=== PATIENT | male | born 1955 | race Hispanic/Latino ===

== ENCOUNTER 2016-09-16 12:05 | Inpatient (IN) | payer MEDICARE ==
[2016-09-16] MEDS ORDERED: NACL 0.9% 1000 ML 1,000 ML IV ONE ×3 (12:35→14:22)
--- NOTE | 2016-09-16 13:10 | Admit Criteria Form ---
Admission Criteria Documentation: SEVERE SEPSIS Clinical Indications for Admission to Inpatient Care (Place 'X' for any and all applicable criteria): Hospital admission is needed for appropriate care of the patient because of ANY ONE of the following: [X]I. Hemodynamic instability indicated by ANY ONE of the following(1)(2)(3)( 4)(5): [X]a. Vital sign abnormality not readily corrected by appropriate treatment within 12 to 24 hours indicated by ANY ONE of the following: []i) Tachycardia that persists despite appropriate treatment [X]ii) Hypotension that persists despite appropriate treatment []iii) Orthostatic vital sign changes that persist despite appropriate treatment [X]b. Vital sign abnormality that is severe indicated by ANY ONE of the following: [Xi. Inadequate perfusion indicated by ANY ONE of the following: [X]1) Lactic acidosis (greater than 2 mmol/L) []2) New abnormal capillary refill (greater than 3 seconds) []3) Reduced urine output [X]4) New altered mental status []5) Myocardial Ischemia [X]ii. Mean arterial pressure [A] less than 60 mm Hg []iii. Mean arterial pressure[A] less than 70 mm Hg after 30 minutes of appropriate treatment (eg, fluid resuscitation) []iv. Sustained heart rate greater than 120 beats per minute in adult []v. IV inotropic or vasopressor medication required to maintain adequate blood pressure or perfusion [X]II. Systemic or infectious condition causing severe symptoms or findings not responsive to emergency or observation care treatment (as appropriate) indicated by ANY ONE of the following: []a. Cardiac arrhythmias of immediate concern(1)(2)(3) []b. Severe endocrine disorder (eg, thyrotoxicosis, adrenal insufficiency)(4)(5) []c. Seizures (eg, new or recurrent)(6) [X]d. New-onset end organ failure or dysfunction as indicated by ANY ONE of the following: []i. Acute unexplained hypoxemia (eg, not from lung infection or chronic disease)(7)(8)(9) []ii. Acute renal failure as indicated by new onset of ANY ONE of the following(10)(11)(12)(13)(14): []1) 3-fold rise in serum creatinine from baseline []2) Serum creatinine greater than 4 mg/dL (354 micromoles/L) with acute rise greater than 0.5 mg/dL (44.2 micromoles/L) []3) Reduction of more than 75% in estimated glomerular filtration rate from baseline. []4) Estimated glomerular filtration rate less than 35 mL/min/1.73m2 ( 0.59 mL/sec/1.73m2) in child younger than 18 years. []5) Cessation of urine output indicated by ALL of the following: []A. Adequate volume status []B. Inadequate urine output as indicated by ANY ONE of the following: []a. Urine output less than 0.3 mL/kg/hr for 24 hours []b. Anuria (urine output less than 0.1 mL/kg/hr) for 12 hours [X]iii. Acute mental status changes(15) []iv. Acute hepatic failure (eg, plasma bilirubin greater than 4 mg/ dL (68 micromoles/L), new INR greater than 2.0)(16)(17) []e. Unmanageable nausea and vomiting(18) []f. New-onset or uncontrolled central diabetes insipidus(19)(20) []g. Clinically significant dehydration(18)(21) []h. Hypoglycemia(22) []i. Acidosis (pH less than 7.35) or alkalosis (pH greater than 7.45)( 22)(23) []j. Toxic drug level that indicates need for specific monitoring or treatment(24)(25) []k. Severe electrolyte abnormalities indicated by ALL of the following( 1)(2)(3): []i. Electrolytes and associated findings are not as expected for patient baseline or acceptable treatment effects. []ii. Severe abnormalities indicated by ANY ONE of the following: []1) Sodium less than 130 mEq/L (mmol/L) (new) []2) Sodium less than 135 mEq/L (mmol/L) with ANY ONE of the following: []A. Uncorrectable (to near normal or chronic baseline) after trial of outpatient and emergency treatment []B. Altered mental status []C. Seizures []D. Severe medical etiology requiring inpatient management (eg , heart failure, hypovolemia) []3) Sodium greater than 155 mEq/L (mmol/L) []4) Sodium greater than 150 mEq/L (mmol/L) with ANY ONE of the following: []A. Uncorrectable (to near normal or chronic baseline) with outpatient and emergency treatment []B. Altered mental status []C. Seizures []D. Severe medical etiology (eg, hypovolemia, diabetes insipidus) []5) Potassium less than 2.5 mEq/L (mmol/L) despite outpatient and emergency treatment []6) Potassium less than 3 mEq/L (mmol/L) with ANY ONE of the following : []A. Weakness []B. Cardiac abnormality (eg, arrhythmia, conduction disturbance ) []C. Cardiac ischemia []D. Ileus []E. Ongoing medical cause requiring inpatient management (eg, acute renal wasting or SIADH) []F. Other severe symptoms []7) Potassium greater than 6.5 mEq/L (mmol/L) []8) Potassium greater than 5 mEq/L (mmol/L) with ANY ONE of the following: []A. Uncorrectable (to near normal or chronic baseline) with outpatient and emergency treatment []B. Severe ECG findings[A] []C. Acute worsening of renal failure (creatinine greater than 2.5 mg/dL (221 micromoles/L) or significant elevation for age and size) []D. Severe weakness []E. Severe medical etiology (eg, hemolysis, infection, drug overdose) []9) Calcium less than 7 mg/dL (1.75 mmol/L) despite outpatient and emergency treatment(5) [X]10) Calcium less than 8 mg/dL (2 mmol/L) with significant symptoms or findings (eg, altered mental status, muscle spasms, seizures, breathing difficulty, cardiac abnormality (eg, arrhythmia or conduction disturbance))(5) []11) Calcium greater than 14 mg/dL (3.5 mmol/L)(5) []12) Calcium greater than 12 mg/dL (3 mmol/L) with ANY ONE of the following(5): []A. Uncorrectable (to near normal or chronic baseline) with outpatient and emergency treatment []B. Significant dehydration or hypovolemia as indicated by ALL of the following(3)(6)(7): []a. Not resolved with initial treatments []b. Clinically significant dehydration as indicated by ANY ONE of the following: [](1) Vomiting refractory to outpatient treatment (ie, precluding oral rehydration) [](2) Inability to drink [](3) Hypernatremia or other electrolyte abnormality unable to be corrected with outpatient and emergency treatment [](4) Failure to remain hydrated with outpatient therapy [](5) Reduced urine output [](6) Hypotension [](7) Serious cause for dehydration requiring acute hospitalization ( eg, bowel obstruction, increased intracranial pressure, infectious cause) [](8) Child with ANY ONE of the following(8): [](i) Severe abdominal tenderness [](ii) Adequate care not available at home [](iii) Severe dehydration (greater than 9% loss of body weight) []C. Significant symptoms or findings (eg, altered mental status , cardiac abnormality (eg, arrhythmia, conduction disturbance), malignant etiology requiring inpatient treatment) []13) Phosphorus less than 1 mg/dL (0.32 mmol/L) []14) Phosphorus less than 1.5 mg/dL (0.48 mmol/L) with ANY ONE of the following: []A. Patient unresponsive to outpatient and emergency treatment []B. Significant symptoms or findings (eg, weakness, altered mental status, breathing difficulty, seizures, rhabdomyolysis) []15) Phosphorus greater than 10 mg/dL (3.2 mmol/L) []16) Phosphorus greater than 4.5 mg/dL (1.45 mmol/L) (new) with ANY ONE of the following: []A. Severe medical etiology (eg, crush injury, acute renal failure) []B. Associated hypocalcemia with significant findings (eg, neurologic symptoms, altered mental status, muscle spasms, seizures, breathing difficulty, cardiac abnormality (eg, arrhythmia, conduction disturbance)) []16) Magnesium less than 1 mg/dL (0.41 mmol/L) []17) Magnesium less than 1.5 mg/dL (0.62 mmol/L) with ANY ONE of the following: []A. Patient unresponsive to outpatient and emergency treatment []B. Associated hypocalcemia with significant findings (eg, altered mental status, muscle spasms, seizures, breathing difficulty, cardiac abnormality (eg, arrhythmia, conduction disturbance)) []C. Associated hypokalemia (potassium less than 3 mEq/L (mmol/L )) with risk of arrhythmia []18) Magnesium greater than 4 mEq/L (2 mmol/L) []19) Magnesium greater than 2.5 mEq/L (1.25 mmol/L) with significant symptoms or findings (eg, weakness, altered mental status, cardiac abnormality (eg, arrhythmia, conduction disturbance), breathing difficulty, severe medical etiology (eg, renal failure, hypovolemia)) []20) Uric acid greater than 20 mg/dL (1190 micromoles/L)(9) []21) Uric acid greater than 8 mg/dL (476 micromoles/L) with significant symptoms or findings of tumor lysis syndrome (eg, creatinine greater than 1.5 times upper limit of normal, cardiac abnormality (eg , arrhythmia, conduction disturbance), seizure)(9) [X]III. High fever or other high-risk infection situation as indicated by ANY ONE of the following(26)(27)(28): [X]a. Outpatient and observation care antimicrobial treatment unavailable, not effective, or not appropriate []b. Documented bacteremia []c. Temperature greater than 104.9 degrees F (40.5 degrees C) (oral) []d. Temperature greater than 103.1 degrees F (39.5 degrees C) (oral) or less than 96.8 degrees F (36 degrees C) (rectal) that does not respond to emergency treatment and observation care []IV. High-risk febrile neutropenia[A] as indicated by ANY ONE of the following(29)(30)(31)(32): []a. Profound neutropenia[B] anticipated to extend for more than 7 days []b. Hemodynamic instability []c. Hypoxemia []d. Tachypnea []e. Altered mental status []f. New-onset abdominal pain []g. New-onset vomiting or diarrhea []h. Oral or gastrointestinal mucositis that interferes with swallowing or causes severe diarrhea []i. Focal infection (eg, cellulitis, pneumonia, central line or catheter infection, perirectal abscess) []j. Renal insufficiency (eg, GFR of less than 30 mL/min/1.73m2 (0.5 mL/sec /1.73m2)). []k. Severe liver dysfunction (transaminase levels greater than 5 times normal) []l. Platelet count less than 50,000/mm3 (50 x109/L)(33) []m. Leukemia or lymphoma induction therapy []n. Leukemia not in complete remission or with evidence of disease progression []o. Bone marrow transplant patient []p. Alemtuzumab being used for therapy []q. [employer] Supportive Care in Cancer (MASCC) Risk Index score of less than 21[C](33)(35). []V. Isolation required (eg, tuberculosis that requires isolation, Ebola infection)[D](36)(37)(38)(39)(40) []. Gangrene that requires treatment beyond emergency or observation level care(41)(42) []VII. Antitoxin administration and ongoing observation required (eg, tetanus, botulism)(43)(44) []. Suspected infection with rapid progression or severe symptoms as indicated by ANY ONE of the following(45): []a. Streptococcal or staphylococcal toxic shock(46) []b. Diphtheria(47) []c. Hantavirus(48) []d. Severe acute respiratory syndrome(8)(49) []e. Anthrax(50) []f. Ebola[D](36)(37)(38) []g. Necrotizing soft tissue infection(41)(42) []h. Plague(50) []i. Other suspected infection that requires care beyond emergency or observation level care []VII. Severe adverse drug or systemic toxin reaction as indicated by ANY ONE of the following(24): []a. Serotonin syndrome(51)(52) []b. Neuroleptic malignant syndrome(51)(52) []c. Cholinergic syndrome with severe symptoms (eg, bronchorrhea, weakness , mental status changes, seizures)(53) []d. Anticholinergic syndrome []e. Sympathetic syndrome with severe symptoms (eg, seizures, mental status changes, cardiac dysrhythmias) []f. Other severe adverse drug or systemic toxin reaction that remains after emergency or observation level care (as appropriate) []VIII. Allergic reaction with severe symptoms (not responsive to emergency or observation care treatment as appropriate), including ANY ONE of the following(54): []a. Airway edema (pharyngeal, epiglottic, or laryngeal edema) []b. Stridor []c. Respiratory failure []d. Bronchospasm []e. Hypotension []IX. Environmental emergency (not responsive to emergency or observation care treatment as appropriate) as indicated by ANY ONE of the following(55)(56): []a. Hyperthermia []b. Heat stroke []c. Heat exhaustion []d. Hypothermia (temperature less than 95 degrees F (35 degrees C) rectal) (57) []e. Electrocution(58) []X. Complications of transplanted organ (ie, not covered elsewhere)[E] indicated by ANY ONE of the following(59): []a. Acute graft rejection (or graft vs. host disease)[F] requiring inpatient management (eg, intravenous immunosuppression)(60)(61)(62)( 63) []b. Acute failure of transplanted organ necessitating inpatient care (eg, cannot be managed in other setting) []c. Infection requiring inpatient management (eg, Hemodynamic instability, need for intravenous antimicrobial treatment)(64)(65) []d. Other complication of transplanted organ requiring inpatient management []XI. Systemic or Infectious Condition condition, symptom, or finding for which emergency and observation care have failed or are not considered appropriate. See General Criteria: Observation Care, General Admission Criteria or Pediatric General Admission Criteria guideline as appropriate. (Contents from SEVERE SEPSIS and SYSTEMIC OR INFECTIOUS CONDITION clinical indications for admission to inpatient care have been integrated in this form) The original [facility] content created by [facility] has been revised. The portions of the content which have been revised are identified through the use of italic text or in bold and [facility] has neither reviewed nor approved the modified material. All other unmodified content is copyright [facility]. Please see references footnoted in the original [facility] edition 2016 Admission Criteria Met: Yes
[2016-09-16] MEDS ORDERED: LEVOPHED DRIP 4 MG/NS 250 ML 250 ML IV ONE (13:15)
[2016-09-16 13:34] LABS: Bilirubin,Urine NEG (Negative); Blood,Urine NEG (Negative); Ketones,Urine NEG (Negative); Leukocyte Esterase,Urine SM (Negative); Mucus,Urine FEW /HPF; Nitrite,Urine NEG (Negative); Protein,Urine <15 mg/dL mg/dL (Negative); Urobilinogen,Urine < 2.0 mg/dL (<2.0)
[2016-09-16 13:39] LABS: INR 1.17 (0.87-1.13)
[2016-09-16] MEDS ORDERED: ZOSYN/NS 4.5GM/100ML 100 ML IV ONE (13:40)
[2016-09-16] MEDS ORDERED: VANCOMYCIN/NS 1 GM/250 ML 250 ML IV ONE (13:40)
--- NOTE | 2016-09-16 13:44 | XRay Report ---
Portable chest: Comparison is made to a prior study of August 31, 2016. Mediastinum projections being slightly wide and the heart may be slightly enlarged. There is no vascular congestion and the lungs are clear. These findings are unchanged from prior study. There has been removal of a previously present right PICC line. Impression: No acute finding. Questionable mild cardiac enlargement.
[2016-09-16 14:00] LABS: Hematocrit TNR % (35.5-45.6); Hemoglobin TNR gm/dl (11.8-15.2); Mean Corpuscular HGB Conc TNR % (32-34); Mean Corpuscular Hemoglobin TNR pg (28-32); Mean Corpuscular Volume TNR fl (84-94); Mean Platelet Volume TNR fl (6-12); Platelet Count TNR K/mm3 (140-440); Red Blood Count TNR M/mm3 (3.65-5.03); Red Cell Distribution Width TNR % (13.2-15.2); White Blood Count TNR K/mm3 (4.5-11.0)
[2016-09-16] MEDS ORDERED: LEVOPHED DRIP 4 MG/NS 250 ML 250 ML IV SCH (14:00)
[2016-09-16 14:01] LABS: Basophils % (Auto) TNR % (0.0-1.8); Eosinophils % (Auto) TNR % (0.0-4.3)
[2016-09-16 14:02] LABS: Diff Status TNR
[2016-09-16 14:13] LABS: Alanine Aminotransferase 44 units/L (7-56); Albumin 2.9 g/dL (3.9-5); Albumin/Globulin Ratio 0.8 %; Alkaline Phosphatase 206 units/L (35-129); Bilirubin,Total 0.6 mg/dL (0.1-1.2); Blood Urea Nitrogen 33 mg/dL (9-20); Calcium 7.6 mg/dL (8.4-10.2); Carbon Dioxide 28 mmol/L (22-30); Chloride 94.1 mmol/L (98-107); Creatine Kinase 24 units/L (55-170); Creatine Kinase MB < 1.0 ng/mL (0.0-4.0); Glucose 173 mg/dL (75-100); Sodium 135 mmol/L (137-145); Total Protein 6.5 g/dL (6.3-8.2)
[2016-09-16 14:14] LABS: Anion Gap 19 mmol/L
[2016-09-16 14:16] LABS: Potassium 6.1 mmol/L (3.6-5.0)
[2016-09-16] MEDS ORDERED: KAYEXALATE PR ONE (14:20)
[2016-09-16] MEDS ORDERED: SODIUM BICARBONATE IV ONE ×2 (14:20→15:00)
[2016-09-16] MEDS ORDERED: PROVENTIL IH ONE (14:20)
[2016-09-16] MEDS ORDERED: CALCIUM CHLORIDE IVP ONE (14:20)
[2016-09-16] MEDS ORDERED: D50W (25GM) IV ONE (14:20)
[2016-09-16 14:25] LABS: Basophils % (Auto) 0.3 % (0.0-1.8); Eosinophils % (Auto) 0.5 % (0.0-4.3); Hematocrit 25.4 % (35.5-45.6); Hemoglobin 7.7 gm/dl (11.8-15.2); Mean Corpuscular HGB Conc 30 % (32-34); Mean Corpuscular Volume 80 fl (84-94); Platelet Count 314 K/mm3 (140-440); Red Blood Count 3.16 M/mm3 (3.65-5.03); Red Cell Distribution Width 19.1 % (13.2-15.2); White Blood Count 14.6 K/mm3 (4.5-11.0)
--- NOTE | 2016-09-16 14:26 | Emergency Department Report ---
ED Altered Mental Status HPI - General Chief Complaint: Altered Mental Status Stated Complaint: AMS/SEPSIS Time Seen by Provider: 09/16/16 12:51 Source: EMS, old records reviewed Mode of arrival: Stretcher Limitations: Altered Mental Status - History of Present Illness Initial Comments: 61-year-old male with a past medical history of paraplegia, sepsis, seizures, diabetes, hypertension, and COPD presents to the hospital with altered mental status and fever. Patient home recorded a axillar temporal 105.6. Given Tylenol 650 per [facility]pc. Patient has multiple significant decubitus ulcers and recent admission here for sepsis. Patient unable to provide any history of present illness due to change in mental status. Patient was admitted here August 24 until September 01 for altered mental status due to sepsis secondary to recurrent UTI with indwelling Page and acute respiratory failure with pneumonia. - Related Data Home Medications Medication Instructions Recorded Confirmed Last Taken Morphine Sulfate [Morphine Sulfate 30 mg PO Q12H 03/15/15 09/16/16 03/16/16 ER] Oxybutynin [Ditropan] 10 mg PO DAILY 03/15/15 09/16/16 03/16/16 Diazepam [Valium] 10 mg PO BID 11/09/15 09/16/16 03/16/16 Fexofenadine/Pseudoephedrine 180 mg PO QDAY 11/09/15 09/16/16 03/16/16 [Yolande-D 24 Hour Tablet] Hydroxyzine HCl [hydrOXYzine] 25 mg PO PRN PRN 11/09/15 09/16/16 03/16/16 diphenhydrAMINE [Benadryl CAP] 25 mg PO Q8HR PRN 11/09/15 09/16/16 Unknown Amitriptyline [Elavil] 50 mg PO QHS 03/17/16 09/16/16 03/16/16 ALPRAZolam [Xanax TAB] 1 mg PO Q8H PRN 08/07/16 09/16/16 Unknown Acetaminophen [Acetaminophen 8 650 mg PO Q8H PRN 08/07/16 09/16/16 09/16/16 Hour] Insulin Aspart [NovoLOG Flexpen] 1 units SQ ACHS 08/07/16 09/16/16 Unknown Docusate Sodium [Colace CAP] 100 mg PO BID PRN 08/25/16 09/16/16 Unknown predniSONE [Deltasone] 10 mg PO DAILY 09/16/16 09/16/16 Unknown Previous Rx's Medication Instructions Recorded Last Taken Type ALBUTEROL Inhaler [ProAir HFA 2 puff INHALATION Q4H PRN #7 inha 11/10/13 Unknown Rx Inhaler] DULoxetine [Cymbalta] 30 mg PO BID #60 capsule 11/10/13 03/16/16 Rx Divalproex Sodium [Depakote] 500 mg PO TID #90 tablet. 11/10/13 03/16/16 Rx Furosemide [Lasix] 40 mg PO DAILY #30 tablet 11/10/13 03/16/16 Rx Potassium Chloride [Klor-Con M10] 20 meq PO DAILY #30 tab.er.prt 11/10/13 Rx Sennosides [Senna Lax] 2 tab PO BID #60 tablet 11/10/13 03/16/16 Rx Aspirin [Aspirin TAB] 325 mg PO QDAY #30 tablet 09/10/14 03/16/16 Rx oxyCODONE /ACETAMINOPHEN [Percocet 1 tab PO Q4H PRN #20 tablet 10/05/14 Rx 5/325 mg] Hydrocortisone 2.5% [Proctosol-Hc] 1 applic MS BID #1 tube 04/15/15 Unknown Rx Lisinopril [Zestril TAB] 10 mg PO QDAY #30 tablet 04/15/15 03/16/16 Rx Pantoprazole [Protonix TAB] 40 mg PO QDAY #30 tablet 04/15/15 03/16/16 Rx Metoprolol [Lopressor TAB] 25 mg PO BID #60 tablet 08/21/16 Unknown Rx Ascorbic Acid [Vitamin C] 500 mg PO QDAY tablet 09/01/16 Unknown Rx Allergies Allergy/AdvReac Type Severity Reaction Status Date / Time raw onion Allergy Vomiting Uncoded 11/09/15 04:49 ED Review of Systems ROS: Stated complaint: AMS/SEPSIS Other details as noted in HPI Comment: Unobtainable due to pts medical conditions (ams) ED Past Medical Hx - Past Medical History Previous Medical History?: Yes Hx Hypertension: Yes Hx Congestive Heart Failure: No Hx Diabetes: Yes Hx Deep Vein Thrombosis: No Hx Sickle Cell Disease: No Hx Arthritis: Yes (neck and shoulder) Hx Seizures: Yes Hx Kidney Stones: Yes Hx Psychiatric Treatment: Yes (DEPRESSIVE DISORDER) Hx Asthma: No Hx COPD: Yes Hx HIV: No Additional medical history: PARAPLEGIA. SEPSIS. LUMBOSACRAL SPONDYLOSIS. Metabolic encephalitis - Surgical History Past Surgical History?: Yes Hx Pacemaker: No Hx Internal Defibrillator: No Additional Surgical History: shoulder - Social History Smoking Status: Unknown if ever smoked - Medications Home Medications: Home Medications Medication Instructions Recorded Confirmed Last Taken Type ALBUTEROL Inhaler [ProAir HFA 2 puff INHALATION Q4H PRN #7 inha 11/10/13 Unknown Rx Inhaler] DULoxetine [Cymbalta] 30 mg PO BID #60 capsule 11/10/13 09/16/16 03/16/16 Rx Divalproex Sodium [Depakote] 500 mg PO TID #90 tablet. 11/10/13 09/16/1603/16 Rx Furosemide [Lasix] 40 mg PO DAILY #30 tablet 11/10/13 09/16/16 03/16/16 Rx Potassium Chloride [Klor-Con M10] 20 meq PO DAILY #30 tab.er.prt 11/10/1303/16/16 Rx Sennosides [Senna Lax] 2 tab PO BID #60 tablet 11/10/13 09/16/16 03/16/16 Rx Aspirin [Aspirin TAB] 325 mg PO QDAY #30 tablet 09/10/14 09/16/16 03/16/16 Rx oxyCODONE /ACETAMINOPHEN [Percocet 1 tab PO Q4H PRN #20 tablet 10/05/1403/16/16 Rx 5/325 mg] Morphine Sulfate [Morphine Sulfate 30 mg PO Q12H 03/15/15 09/16/16 03/16/16 History ER] Oxybutynin [Ditropan] 10 mg PO DAILY 03/15/15 09/16/16 03/16/16 History Hydrocortisone 2.5% [Proctosol-Hc] 1 applic MS BID #1 tube 04/15/15 09/16/16 Unknown Rx Lisinopril [Zestril TAB] 10 mg PO QDAY #30 tablet 08/03/15 01/04/17 07/04/16 Rx Pantoprazole [Protonix TAB] 40 mg PO QDAY #30 tablet 04/15/15 09/16/16 03/16/16 Rx Diazepam [Valium] 10 mg PO BID 11/09/15 09/16/16 03/16/16 History Fexofenadine/Pseudoephedrine 180 mg PO QDAY 11/09/15 09/16/16 03/16/16 History [Yolande-D 24 Hour Tablet] Hydroxyzine HCl [hydrOXYzine] 25 mg PO PRN PRN 11/09/15 09/16/16 03/16/16 History diphenhydrAMINE [Benadryl CAP] 25 mg PO Q8HR PRN 11/09/15 09/16/16 Unknown History Amitriptyline [Elavil] 50 mg PO QHS 03/17/16 09/16/16 03/16/16 History ALPRAZolam [Xanax TAB] 1 mg PO Q8H PRN 08/07/16 09/16/16 Unknown History Acetaminophen [Acetaminophen 8 650 mg PO Q8H PRN 08/07/16 09/16/16 09/16/16 History Hour] Insulin Aspart [NovoLOG Flexpen] 1 units SQ ACHS 08/07/16 09/16/16 Unknown History Metoprolol [Lopressor TAB] 25 mg PO BID #60 tablet 08/21/16 09/16/16 Unknown Rx Docusate Sodium [Colace CAP] 100 mg PO BID PRN 08/25/16 09/16/16 Unknown History Ascorbic Acid [Vitamin C] 500 mg PO QDAY tablet 09/01/16 09/16/16 Unknown Rx predniSONE [Deltasone] 10 mg PO DAILY 09/16/16 09/16/16 Unknown History ED Physical Exam - General Limitations: Altered Mental Status - Other Other exam information: General: No limitations, patient is alert in no acute distress Head exam: Atraumatic, normocephalic Eyes exam: Normal appearance, pupils sluggish 3 mm ENT: Moist mucous membrane, normal oropharynx Neck exam: Normal inspection, full range of motion, no meningismus nontender Respiratory exam: Clear to auscultation bilateral, no wheezes, rales, crackles, respiratory depression Cardiovascular: Normal rate and rhythm Abdomen: Soft, nondistended, and nontender, with normal bowel sounds, no rebound, or guarding Extremity: Full range of motion normal inspection no deformity Back: Normal Inspection, full range of motion, no tenderness Neurologic: Minimally responsive to painful stimuli Psychiatric: Sedated Skin: Black discoloration to left distal great toe. Secured decubitus with surrounding erythema and yellow exudate ED Course Vital Signs 09/16/16 09/16/16 09/16/16 12:33 12:34 12:36 Temperature Temperature [ Pre-Procedure] Pulse Rate 75 Pulse Rate [Pre -Procedure] Respiratory 27 H Rate Respiratory Rate [Pre- Procedure] Blood Pressure Blood Pressure [Pre-Procedure] Blood Pressure [Right] O2 Sat by Pulse 98 100 100 Oximetry O2 Sat by Pulse Oximetry [Pre- Procedure] 09/16/16 09/16/16 09/16/16 12:37 12:39 12:40 Temperature Temperature [ Pre-Procedure] Pulse Rate 75 74 74 Pulse Rate [Pre -Procedure] Respiratory 13 12 12 Rate Respiratory Rate [Pre- Procedure] Blood Pressure 51/18 51/18 Blood Pressure [Pre-Procedure] Blood Pressure [Right] O2 Sat by Pulse 100 99 Oximetry O2 Sat by Pulse Oximetry [Pre- Procedure] 09/16/16 09/16/16 09/16/16 12:41 12:43 12:44 Temperature Temperature [ Pre-Procedure] Pulse Rate 75 74 75 Pulse Rate [Pre -Procedure] Respiratory 13 32 H 31 H Rate Respiratory Rate [Pre- Procedure] Blood Pressure 51/18 59/19 59/19 Blood Pressure [Pre-Procedure] Blood Pressure [Right] O2 Sat by Pulse 92 98 98 Oximetry O2 Sat by Pulse Oximetry [Pre- Procedure] 09/16/16 09/16/16 09/16/16 12:46 12:47 12:49 Temperature 101.6 F H Temperature [ Pre-Procedure] Pulse Rate 72 72 72 Pulse Rate [Pre -Procedure] Respiratory 10 L 15 15 Rate Respiratory Rate [Pre- Procedure] Blood Pressure 52/18 59/19 59/19 Blood Pressure [Pre-Procedure] Blood Pressure [Right] O2 Sat by Pulse 100 97 99 Oximetry O2 Sat by Pulse Oximetry [Pre- Procedure] 09/16/16 09/16/16 09/16/16 12:50 12:53 12:55 Temperature Temperature [ Pre-Procedure] Pulse Rate 73 72 71 Pulse Rate [Pre -Procedure] Respiratory 12 15 15 Rate Respiratory Rate [Pre- Procedure] Blood Pressure 53/20 53/20 53/20 Blood Pressure [Pre-Procedure] Blood Pressure [Right] O2 Sat by Pulse 98 99 99 Oximetry O2 Sat by Pulse Oximetry [Pre- Procedure] 09/16/16 09/16/16 09/16/16 12:57 12:58 12:59 Temperature Temperature [ 101.6 F H Pre-Procedure] Pulse Rate 82 81 Pulse Rate [Pre 72 -Procedure] Respiratory 13 12 Rate Respiratory 10 L Rate [Pre- Procedure] Blood Pressure 53/20 51/18 Blood Pressure 53/20 [Pre-Procedure] Blood Pressure [Right] O2 Sat by Pulse 99 98 Oximetry O2 Sat by Pulse 99 Oximetry [Pre- Procedure] 09/16/16 09/16/16 09/16/16 13:00 13:03 13:05 Temperature Temperature [ Pre-Procedure] Pulse Rate 81 81 80 Pulse Rate [Pre -Procedure] Respiratory 14 14 13 Rate Respiratory Rate [Pre- Procedure] Blood Pressure 50/23 50/23 50/23 Blood Pressure [Pre-Procedure] Blood Pressure [Right] O2 Sat by Pulse 97 98 98 Oximetry O2 Sat by Pulse Oximetry [Pre- Procedure] 09/16/16 09/16/16 09/16/16 13:07 13:09 13:10 Temperature Temperature [ Pre-Procedure] Pulse Rate 78 81 78 Pulse Rate [Pre -Procedure] Respiratory 15 15 12 Rate Respiratory Rate [Pre- Procedure] Blood Pressure 50/23 50/23 57/16 Blood Pressure [Pre-Procedure] Blood Pressure [Right] O2 Sat by Pulse 98 97 98 Oximetry O2 Sat by Pulse Oximetry [Pre- Procedure] 09/16/16 09/16/16 09/16/16 13:13 13:15 13:17 Temperature Temperature [ Pre-Procedure] Pulse Rate 81 81 70 Pulse Rate [Pre -Procedure] Respiratory 13 13 13 Rate Respiratory Rate [Pre- Procedure] Blood Pressure 57/16 57/16 57/16 Blood Pressure [Pre-Procedure] Blood Pressure [Right] O2 Sat by Pulse 97 82 L 73 L Oximetry O2 Sat by Pulse Oximetry [Pre- Procedure] 09/16/16 09/16/16 09/16/16 13:19 13:20 13:21 Temperature Temperature [ Pre-Procedure] Pulse Rate 71 70 70 Pulse Rate [Pre -Procedure] Respiratory 12 13 11 L Rate Respiratory Rate [Pre- Procedure] Blood Pressure 57/16 45/16 45/16 Blood Pressure [Pre-Procedure] Blood Pressure [Right] O2 Sat by Pulse 100 99 100 Oximetry O2 Sat by Pulse Oximetry [Pre- Procedure] 09/16/16 09/16/16 09/16/16 13:23 13:25 13:26 Temperature Temperature [ Pre-Procedure] Pulse Rate 69 68 Pulse Rate [Pre -Procedure] Respiratory 13 10 L 10 L Rate Respiratory Rate [Pre- Procedure] Blood Pressure 45/16 45/16 Blood Pressure [Pre-Procedure] Blood Pressure [Right] O2 Sat by Pulse 100 99 99 Oximetry O2 Sat by Pulse Oximetry [Pre- Procedure] 09/16/16 09/16/16 09/16/16 13:27 13:29 13:30 Temperature Temperature [ Pre-Procedure] Pulse Rate 69 69 69 Pulse Rate [Pre -Procedure] Respiratory 11 L 12 12 Rate Respiratory Rate [Pre- Procedure] Blood Pressure 45/16 45/16 54/21 Blood Pressure [Pre-Procedure] Blood Pressure [Right] O2 Sat by Pulse 100 100 100 Oximetry O2 Sat by Pulse Oximetry [Pre- Procedure] 09/16/16 09/16/16 09/16/16 13:33 13:35 13:37 Temperature Temperature [ Pre-Procedure] Pulse Rate 67 67 66 Pulse Rate [Pre -Procedure] Respiratory 11 L 10 L 11 L Rate Respiratory Rate [Pre- Procedure] Blood Pressure 54/21 54/21 54/21 Blood Pressure [Pre-Procedure] Blood Pressure [Right] O2 Sat by Pulse 100 100 100 Oximetry O2 Sat by Pulse Oximetry [Pre- Procedure] 09/16/16 09/16/16 09/16/16 13:39 13:40 13:43 Temperature Temperature [ Pre-Procedure] Pulse Rate 65 65 65 Pulse Rate [Pre -Procedure] Respiratory 12 11 L 10 L Rate Respiratory Rate [Pre- Procedure] Blood Pressure 54/21 59/23 59/23 Blood Pressure [Pre-Procedure] Blood Pressure [Right] O2 Sat by Pulse 100 100 100 Oximetry O2 Sat by Pulse Oximetry [Pre- Procedure] 09/16/16 09/16/16 09/16/16 13:45 13:47 13:49 Temperature Temperature [ Pre-Procedure] Pulse Rate 64 64 63 Pulse Rate [Pre -Procedure] Respiratory 11 L 10 L 11 L Rate Respiratory Rate [Pre- Procedure] Blood Pressure 59/23 59/23 59/23 Blood Pressure [Pre-Procedure] Blood Pressure [Right] O2 Sat by Pulse 100 100 100 Oximetry O2 Sat by Pulse Oximetry [Pre- Procedure] 09/16/16 09/16/16 09/16/16 13:50 13:51 13:53 Temperature Temperature [ Pre-Procedure] Pulse Rate 63 63 62 Pulse Rate [Pre -Procedure] Respiratory 10 L 9 L 10 L Rate Respiratory Rate [Pre- Procedure] Blood Pressure 67/25 67/25 67/25 Blood Pressure [Pre-Procedure] Blood Pressure [Right] O2 Sat by Pulse 100 100 100 Oximetry O2 Sat by Pulse Oximetry [Pre- Procedure] 09/16/16 09/16/16 09/16/16 13:55 13:57 13:59 Temperature Temperature [ Pre-Procedure] Pulse Rate 62 62 62 Pulse Rate [Pre -Procedure] Respiratory 11 L 13 11 L Rate Respiratory Rate [Pre- Procedure] Blood Pressure 67/25 67/25 67/25 Blood Pressure [Pre-Procedure] Blood Pressure [Right] O2 Sat by Pulse 100 100 100 Oximetry O2 Sat by Pulse Oximetry [Pre- Procedure] 09/16/16 09/16/16 09/16/16 14:00 14:03 14:05 Temperature Temperature [ Pre-Procedure] Pulse Rate 61 61 60 Pulse Rate [Pre -Procedure] Respiratory 11 L 11 L 11 L Rate Respiratory Rate [Pre- Procedure] Blood Pressure 62/21 62/21 62/21 Blood Pressure [Pre-Procedure] Blood Pressure [Right] O2 Sat by Pulse 100 100 100 Oximetry O2 Sat by Pulse Oximetry [Pre- Procedure] 09/16/16 09/16/16 09/16/16 14:07 14:09 14:10 Temperature Temperature [ Pre-Procedure] Pulse Rate 60 57 L 90 Pulse Rate [Pre -Procedure] Respiratory 10 L 12 13 Rate Respiratory Rate [Pre- Procedure] Blood Pressure 62/21 62/21 64/24 Blood Pressure [Pre-Procedure] Blood Pressure [Right] O2 Sat by Pulse 100 100 98 Oximetry O2 Sat by Pulse Oximetry [Pre- Procedure] 09/16/16 09/16/16 09/16/16 14:13 14:15 14:17 Temperature Temperature [ Pre-Procedure] Pulse Rate 59 L 59 L 59 L Pulse Rate [Pre -Procedure] Respiratory 11 L 10 L 12 Rate Respiratory Rate [Pre- Procedure] Blood Pressure 64/24 64/24 64/24 Blood Pressure [Pre-Procedure] Blood Pressure [Right] O2 Sat by Pulse 100 100 100 Oximetry O2 Sat by Pulse Oximetry [Pre- Procedure] 09/16/16 09/16/16 09/16/16 14:19 14:20 14:23 Temperature Temperature [ Pre-Procedure] Pulse Rate 59 L 78 88 Pulse Rate [Pre -Procedure] Respiratory 8 L 11 L 12 Rate Respiratory Rate [Pre- Procedure] Blood Pressure 64/24 78/30 78/30 Blood Pressure [Pre-Procedure] Blood Pressure [Right] O2 Sat by Pulse 100 100 100 Oximetry O2 Sat by Pulse Oximetry [Pre- Procedure] 09/16/16 09/16/16 09/16/16 14:25 14:38 14:52 Temperature Temperature [ Pre-Procedure] Pulse Rate 81 89 65 Pulse Rate [Pre -Procedure] Respiratory 9 L 14 16 Rate Respiratory Rate [Pre- Procedure] Blood Pressure 78/30 Blood Pressure [Pre-Procedure] Blood Pressure 127/60 61/45 [Right] O2 Sat by Pulse 100 98 Oximetry O2 Sat by Pulse Oximetry [Pre- Procedure] 09/16/16 09/16/16 09/16/16 15:00 15:10 15:20 Temperature Temperature [ Pre-Procedure] Pulse Rate 64 65 68 Pulse Rate [Pre -Procedure] Respiratory 16 16 16 Rate Respiratory Rate [Pre- Procedure] Blood Pressure Blood Pressure [Pre-Procedure] Blood Pressure 123/39 109/43 123/39 [Right] O2 Sat by Pulse 100 99 99 Oximetry O2 Sat by Pulse Oximetry [Pre- Procedure] 09/16/16 09/16/16 09/16/16 15:30 15:40 15:50 Temperature Temperature [ Pre-Procedure] Pulse Rate 75 75 75 Pulse Rate [Pre -Procedure] Respiratory 16 16 16 Rate Respiratory Rate [Pre- Procedure] Blood Pressure Blood Pressure [Pre-Procedure] Blood Pressure 132/45 111/39 114/42 [Right] O2 Sat by Pulse 98 99 99 Oximetry O2 Sat by Pulse Oximetry [Pre- Procedure] 09/16/16 09/16/16 09/16/16 16:00 16:10 16:20 Temperature Temperature [ Pre-Procedure] Pulse Rate 74 72 74 Pulse Rate [Pre -Procedure] Respiratory 16 16 16 Rate Respiratory Rate [Pre- Procedure] Blood Pressure Blood Pressure [Pre-Procedure] Blood Pressure 108/39 110/40 113/40 [Right] O2 Sat by Pulse 99 100 100 Oximetry O2 Sat by Pulse Oximetry [Pre- Procedure] 09/16/16 09/16/16 09/16/16 16:30 16:32 16:40 Temperature Temperature [ Pre-Procedure] Pulse Rate 75 72 Pulse Rate [Pre -Procedure] Respiratory 16 Rate Respiratory Rate [Pre- Procedure] Blood Pressure Blood Pressure [Pre-Procedure] Blood Pressure 108/32 112/37 [Right] O2 Sat by Pulse Oximetry O2 Sat by Pulse Oximetry [Pre- Procedure] 09/16/16 09/16/16 09/16/16 16:50 16:57 17:00 Temperature Temperature [ Pre-Procedure] Pulse Rate 72 74 Pulse Rate [Pre -Procedure] Respiratory Rate Respiratory Rate [Pre- Procedure] Blood Pressure 104/67 Blood Pressure [Pre-Procedure] Blood Pressure 114/37 123/42 [Right] O2 Sat by Pulse Oximetry O2 Sat by Pulse Oximetry [Pre- Procedure] 09/16/16 09/16/16 09/16/16 17:10 17:20 17:30 Temperature Temperature [ Pre-Procedure] Pulse Rate 74 71 70 Pulse Rate [Pre -Procedure] Respiratory Rate Respiratory Rate [Pre- Procedure] Blood Pressure Blood Pressure [Pre-Procedure] Blood Pressure 121/43 122/40 122/41 [Right] O2 Sat by Pulse Oximetry O2 Sat by Pulse Oximetry [Pre- Procedure] 09/16/16 09/16/16 09/16/16 17:40 18:00 18:10 Temperature Temperature [ Pre-Procedure] Pulse Rate 71 68 66 Pulse Rate [Pre -Procedure] Respiratory 14 14 14 Rate Respiratory Rate [Pre- Procedure] Blood Pressure Blood Pressure [Pre-Procedure] Blood Pressure 123/41 98/40 104/44 [Right] O2 Sat by Pulse 100 100 100 Oximetry O2 Sat by Pulse Oximetry [Pre- Procedure] 09/16/16 09/16/16 09/16/16 18:20 18:40 18:50 Temperature Temperature [ Pre-Procedure] Pulse Rate 66 64 63 Pulse Rate [Pre -Procedure] Respiratory 14 14 14 Rate Respiratory Rate [Pre- Procedure] Blood Pressure Blood Pressure [Pre-Procedure] Blood Pressure 129/49 112/43 105/48 [Right] O2 Sat by Pulse 100 100 100 Oximetry O2 Sat by Pulse Oximetry [Pre- Procedure] 09/16/16 09/16/16 09/16/16 19:00 19:15 19:30 Temperature Temperature [ Pre-Procedure] Pulse Rate 64 64 63 Pulse Rate [Pre -Procedure] Respiratory 14 14 14 Rate Respiratory Rate [Pre- Procedure] Blood Pressure Blood Pressure [Pre-Procedure] Blood Pressure 139/50 137/46 140/50 [Right] O2 Sat by Pulse 100 100 100 Oximetry O2 Sat by Pulse Oximetry [Pre- Procedure] 09/16/16 19:45 Temperature Temperature [ Pre-Procedure] Pulse Rate 62 Pulse Rate [Pre -Procedure] Respiratory 14 Rate Respiratory Rate [Pre- Procedure] Blood Pressure Blood Pressure [Pre-Procedure] Blood Pressure 140/50 [Right] O2 Sat by Pulse 100 Oximetry O2 Sat by Pulse Oximetry [Pre- Procedure] - Reevaluation(s) Reevaluation #1: 09/16/16 14:38 Normal saline a Levophed initiated with some improvement in blood pressure. Respiratory rate 10 and patient given Narcan 1 mg and became more alert and able to speak with improved respiratory rate. Patient is on morphine, codeine, and Percocet at the [facility] 09/16/16 14:39 - Central Line Placement Right Femoral Consent Obtained: emergent situation Time Out Performed: Yes Patient Placed on Monitor/Pulse Ox: Yes Prep: mask, gown, gloves Central Line Prep: Chlorhexidine scrub, sterile drapes applied Local Anesthesia Used: Lidocaine 1% Amount of Anesthesia Used (mls): 3 Ultrasound Used for Placement: Yes Central Line Lumen Inserted: triple Bloods Obtained for Lab: Yes Central Line Position: good blood return Dressing Applied: Tegaderm Post Procedure X-Ray: tip of catheter in good p Patient Tolerated Procedure: well Complications: none - Lab Data Result diagrams: 09/16/16 Unknown 09/16/16 Unknown Lab Results 09/16/16 09/16/16 09/16/16 Range/Units 12:50 15:15 15:20 WBC RBC Hgb Hct MCV MCH MCHC RDW Plt Count Lymph % (Auto) [place] % (Auto) Eos % (Auto) Baso % (Auto) Lymph # [place] # Eos # Baso # Add Manual Diff Seg Neutrophils % Seg Neutrophils # PT (12.2-14.9) Sec. INR (0.87-1.13) VBG pH (7.320-7.420) Sodium (137-145) mmol/L Potassium (3.6-5.0) mmol/L Chloride (98-107) mmol/L Carbon Dioxide (22-30) mmol/L Anion Gap mmol/L BUN (9-20) mg/dL Creatinine (0.8-1.5) mg/dL Estimated GFR ml/min BUN/Creatinine Ratio % Glucose (75-100) mg/dL POC Glucose 199 H (70-105) Lactic Acid 2.1 H* (0.7-2.0) mmol/L Calcium (8.4-10.2) mg/dL Total Bilirubin (0.1-1.2) mg/dL AST (5-40) units/L ALT (7-56) units/L Alkaline Phosphatase (35-129) units/L Total Creatine Kinase (55-170) units/L CK-MB (CK-2) (0.0-4.0) ng/mL CK-MB (CK-2) Rel Index (0-4) Troponin T (0.00-0.029) ng/mL Total Protein (6.3-8.2) g/dL Albumin (3.9-5) g/dL Albumin/Globulin Ratio % Triglycerides (2-149) mg/dL Cholesterol (50-199) mg/dL LDL Cholesterol Direct (50-130) mg/dL HDL Cholesterol (40-59) mg/dL Cholesterol/HDL Ratio % Urine Color Yellow (Yellow) Urine Turbidity Clear (Clear) Urine pH 6.0 (5.0-7.0) Ur Specific [place] 1.010 (1.003-1.030) Urine Protein <15 mg/dl (Negative) mg/dL Urine Glucose (UA) Neg (Negative) mg/dL Urine Ketones Neg (Negative) mg/dL Urine Blood Neg (Negative) Urine Nitrite Neg (Negative) Urine Bilirubin Neg (Negative) Urine Urobilinogen < 2.0 (<2.0) mg/dL Ur Leukocyte Esterase Sm (Negative) Urine WBC (Auto) 30.0 H (0.0-6.0) /HPF Urine RBC (Auto) 10.0 (0.0-6.0) /HPF Urine Mucus Few /HPF 09/16/16 09/16/16 09/16/16 Range/Units Unknown Unknown Unknown WBC TNR RBC TNR Hgb TNR Hct TNR MCV TNR MCH TNR MCHC TNR RDW TNR Plt Count TNR Lymph % (Auto) TNR [place] % (Auto) TNR Eos % (Auto) TNR Baso % (Auto) TNR Lymph # TNR [place] # TNR Eos # TNR Baso # TNR Add Manual Diff TNR Seg Neutrophils % TNR Seg Neutrophils # TNR PT 14.8 (12.2-14.9) Sec. INR 1.17 H (0.87-1.13) VBG pH (7.320-7.420) Sodium 135 L (137-145) mmol/L Potassium 6.1 H* (3.6-5.0) mmol/L Chloride 94.1 L (98-107) mmol/L Carbon Dioxide 28 (22-30) mmol/L Anion Gap 19 mmol/L BUN 33 H (9-20) mg/dL Creatinine 2.0 H (0.8-1.5) mg/dL Estimated GFR 34 ml/min BUN/Creatinine Ratio 16.50 % Glucose 173 H (75-100) mg/dL POC Glucose (70-105) Lactic Acid (0.7-2.0) mmol/L Calcium 7.6 L (8.4-10.2) mg/dL Total Bilirubin 0.6 (0.1-1.2) mg/dL AST 51 H (5-40) units/L ALT 44 (7-56) units/L Alkaline Phosphatase 206 H (35-129) units/L Total Creatine Kinase 24 L (55-170) units/L CK-MB (CK-2) < 1.0 (0.0-4.0) ng/mL CK-MB (CK-2) Rel Index 4.1 H (0-4) Troponin T 0.145 H* (0.00-0.029) ng/mL Total Protein 6.5 (6.3-8.2) g/dL Albumin 2.9 L (3.9-5) g/dL Albumin/Globulin Ratio 0.8 % Triglycerides 180 H (2-149) mg/dL Cholesterol 116 (50-199) mg/dL LDL Cholesterol Direct 53 (50-130) mg/dL HDL Cholesterol 27 L (40-59) mg/dL Cholesterol/HDL Ratio 4.29 % Urine Color (Yellow) Urine Turbidity (Clear) Urine pH (5.0-7.0) Ur Specific [place] (1.003-1.030) Urine Protein (Negative) mg/dL Urine Glucose (UA) (Negative) mg/dL Urine Ketones (Negative) mg/dL Urine Blood (Negative) Urine Nitrite (Negative) Urine Bilirubin (Negative) Urine Urobilinogen (<2.0) mg/dL Ur Leukocyte Esterase (Negative) Urine WBC (Auto) (0.0-6.0) /HPF Urine RBC (Auto) (0.0-6.0) /HPF Urine Mucus /HPF 09/16/16 09/16/16 09/16/16 Range/Units Unknown Unknown Unknown WBC 14.6 H RBC 3.16 L Hgb 7.7 L Hct 25.4 L MCV 80 L MCH 24 L MCHC 30 L RDW 19.1 H Plt Count 314 Lymph % (Auto) 8.5 L [place] % (Auto) 11.0 H Eos % (Auto) 0.5 Baso % (Auto) 0.3 Lymph # 1.2 [place] # 1.6 H Eos # 0.1 Baso # 0.0 Add Manual Diff Seg Neutrophils % 79.7 H Seg Neutrophils # 11.6 H PT (12.2-14.9) Sec. INR (0.87-1.13) VBG pH 7.324 (7.320-7.420) Sodium (137-145) mmol/L Potassium (3.6-5.0) mmol/L Chloride (98-107) mmol/L Carbon Dioxide (22-30) mmol/L Anion Gap mmol/L BUN (9-20) mg/dL Creatinine (0.8-1.5) mg/dL Estimated GFR ml/min BUN/Creatinine Ratio % Glucose (75-100) mg/dL POC Glucose (70-105) Lactic Acid 2.6 H* (0.7-2.0) mmol/L Calcium (8.4-10.2) mg/dL Total Bilirubin (0.1-1.2) mg/dL AST (5-40) units/L ALT (7-56) units/L Alkaline Phosphatase (35-129) units/L Total Creatine Kinase (55-170) units/L CK-MB (CK-2) (0.0-4.0) ng/mL CK-MB (CK-2) Rel Index (0-4) Troponin T (0.00-0.029) ng/mL Total Protein (6.3-8.2) g/dL Albumin (3.9-5) g/dL Albumin/Globulin Ratio % Triglycerides (2-149) mg/dL Cholesterol (50-199) mg/dL LDL Cholesterol Direct (50-130) mg/dL HDL Cholesterol (40-59) mg/dL Cholesterol/HDL Ratio % Urine Color (Yellow) Urine Turbidity (Clear) Urine pH (5.0-7.0) Ur Specific [place] (1.003-1.030) Urine Protein (Negative) mg/dL Urine Glucose (UA) (Negative) mg/dL Urine Ketones (Negative) mg/dL Urine Blood (Negative) Urine Nitrite (Negative) Urine Bilirubin (Negative) Urine Urobilinogen (<2.0) mg/dL Ur Leukocyte Esterase (Negative) Urine WBC (Auto) (0.0-6.0) /HPF Urine RBC (Auto) (0.0-6.0) /HPF Urine Mucus /HPF - EKG Data -: EKG Interpreted by Me (sinus rate 73 left axis deviation) When compared to previous EKG there are: no significant change - Radiology Data Radiology results: report reviewed (chest x-ray: No acute findings questionable mild cardiac enlargement) - Medical Decision Making Patient's mental status improved with Narcan. Blood pressure improved with fluids and Levophed. Medications ordered for hyperkalemia. Patient's chronic troponin elevation - Differential Diagnosis UTI, pneumonia, sepsis, narcotic overdose, encephalopathy Critical Care Time: Yes Critical care time in (mins) excluding proc time.: 30 Critical care attestation.: If time is entered above; I have spent that time in minutes in the direct care of this critically ill patient, excluding procedure time. ED Disposition Clinical Impression: Septic shock, Hyperkalemia, Narcotic-induced respiratory depression, Paraplegia , Urine leukocytes increased, Acute renal failure, Anemia Disposition: OP ADMITTED IP TO THIS HOSP Is pt being admited?: Yes Condition: Stable Time of Disposition: 14:41 (Dr Ramos/hosp)
[2016-09-16] MEDS ORDERED: NARCAN 2 MG/2 ML IV ONE (14:29)
[2016-09-16 14:31] LABS: Mean Corpuscular Hemoglobin 24 pg (28-32)
[2016-09-16] MEDS ORDERED: TYLENOL PR ONE (14:33)
[2016-09-16 14:50] LABS: Cholesterol 116 mg/dL (50-199); HDL Cholesterol 27 mg/dL (40-59); LDL Cholesterol,Direct 53 mg/dL (50-130); Triglycerides 180 mg/dL (2-149)
[2016-09-16] MEDS ORDERED: CALCIUM CHLORIDE IV ONE (15:00)
[2016-09-16] MEDS ORDERED: NACL 0.9% 100 ML ONE (15:03)
[2016-09-16 21:17] LABS: Potassium 4.4 mmol/L (3.6-5.0)
[2016-09-16] MEDS ORDERED: SIMPLE SYRUP FEEDTUBE PRN ×2 (21:29)
[2016-09-16] MEDS ORDERED: PANCREAZE DR 10,500 UNIT FEEDTUBE PRN (21:29)
[2016-09-16] MEDS ORDERED: ALUM-MAG HYDROX-SIMETH 200-200-20MG/5ML PO PRN (21:29)
[2016-09-16] MEDS ORDERED: SODIUM BICARBONATE FEEDTUBE PRN (21:29)
[2016-09-16] MEDS ORDERED: DULCOLAX PR PRN (21:29)
[2016-09-16] MEDS ORDERED: MILK OF MAGNESIA PO PRN (21:29)
[2016-09-16] MEDS ORDERED: DILAUDID IV PRN (21:29)
--- NOTE | 2016-09-16 21:29 | Event Note ---
Date: 09/16/16 See H/p in reports Sepsis Hypotension
[2016-09-16 22:45] LABS: Basophils % (Auto) 0.2 % (0.0-1.8); Eosinophils % (Auto) 0.1 % (0.0-4.3); Hematocrit 27.2 % (35.5-45.6); Hemoglobin 8.3 gm/dl (11.8-15.2); Mean Corpuscular HGB Conc 31 % (32-34); Mean Corpuscular Volume 80 fl (84-94); Platelet Count 315 K/mm3 (140-440); Red Blood Count 3.41 M/mm3 (3.65-5.03); Red Cell Distribution Width 18.9 % (13.2-15.2); White Blood Count 8.2 K/mm3 (4.5-11.0)
[2016-09-16 22:46] LABS: Mean Corpuscular Hemoglobin 24 pg (28-32)
[2016-09-16] MEDS: ZOSYN/NS 4.5GM/100ML 100 ML IV SCH (22:56)
[2016-09-16 22:57] LABS: Albumin 2.9 g/dL (3.9-5); Albumin/Globulin Ratio 0.7 %; BUN/Creatinine Ratio 20.76; Bilirubin,Total 0.4 mg/dL (0.1-1.2); Calcium 7.8 mg/dL (8.4-10.2); Chloride 100.1 mmol/L (98-107); Potassium 4.6 mmol/L (3.6-5.0); Total Protein 6.9 g/dL (6.3-8.2)
[2016-09-17] MEDS: D5NS 1,000 ML IV SCH ×2 (02:48→12:15)
[2016-09-17] MEDS ORDERED: ATIVAN IV PRN (02:53)
[2016-09-17] MEDS ORDERED: HALDOL IM PRN (02:54)
[2016-09-17] MEDS: ZOSYN/NS 4.5GM/100ML 100 ML IV SCH (06:15)
[2016-09-17 06:26] LABS: Basophils % (Auto) 0.3 % (0.0-1.8); Eosinophils % (Auto) 1.7 % (0.0-4.3); Hemoglobin 7.9 gm/dl (11.8-15.2); Mean Corpuscular HGB Conc 30 % (32-34); Mean Corpuscular Volume 80 fl (84-94); Platelet Count 279 K/mm3 (140-440); Red Blood Count 3.26 M/mm3 (3.65-5.03); Red Cell Distribution Width 19.1 % (13.2-15.2); White Blood Count 6.7 K/mm3 (4.5-11.0)
[2016-09-17 06:37] LABS: Mean Corpuscular Hemoglobin 24 pg (28-32)
[2016-09-17 06:42] LABS: Alanine Aminotransferase 48 units/L (7-56); Albumin 2.7 g/dL (3.9-5); Albumin/Globulin Ratio 0.7 %; Alkaline Phosphatase 163 units/L (35-129); BUN/Creatinine Ratio 25.55; Bilirubin,Total 0.4 mg/dL (0.1-1.2); Blood Urea Nitrogen 23 mg/dL (9-20); Calcium 7.7 mg/dL (8.4-10.2); Carbon Dioxide 29 mmol/L (22-30); Chloride 102.9 mmol/L (98-107); Glucose 140 mg/dL (75-100); Potassium 4.2 mmol/L (3.6-5.0); Sodium 144 mmol/L (137-145); Total Protein 6.7 g/dL (6.3-8.2)
[2016-09-17 06:46] LABS: Anion Gap 16 mmol/L
--- NOTE | 2016-09-17 08:11 | Consultation ---
History of Present Illness - Reason for Consult Consult date: 09/17/16 acute renal failure, hyperkalemia - History of Present Illness Patient is a 61 year old WM with past medical history significant for Paraplegia , Seizure disorder, DM type 2, Hypertension, COPD and [place] resident presents to the ER with altered mental status and fever. He had a prolonged hospital stay recently and treated for sepsis. Patient unable to provide any history due to change in mental status. Information obtained from previous documentation. Patient had a temperature of 105.6 at [place]. His initial temp was 101.6 and since then he remains afebrile. His creatinine went upto 2 with potassium of 6, both are improving. Patient is on Levophed. Past History Past Medical History: diabetes, hypertension, seizures Medications and Allergies Allergies Allergy/AdvReac Type Severity Reaction Status Date / Time raw onion Allergy Vomiting Uncoded 11/09/15 04:49 Home Medications Medication Instructions Recorded Confirmed Last Taken Type ALBUTEROL Inhaler [ProAir HFA 2 puff INHALATION Q4H PRN #7 inha 11/10/13 Unknown Rx Inhaler] DULoxetine [Cymbalta] 30 mg PO BID #60 capsule 11/10/13 09/16/16 03/16/16 Rx Divalproex Sodium [Depakote] 500 mg PO TID #90 tablet. 11/10/13 09/16/1603/16 Rx Furosemide [Lasix] 40 mg PO DAILY #30 tablet 11/10/13 09/16/16 03/16/16 Rx Potassium Chloride [Klor-Con M10] 20 meq PO DAILY #30 tab.er.prt 11/10/1303/16/16 Rx Sennosides [Senna Lax] 2 tab PO BID #60 tablet 11/10/13 09/16/16 03/16/16 Rx Aspirin [Aspirin TAB] 325 mg PO QDAY #30 tablet 09/10/14 09/16/16 03/16/16 Rx oxyCODONE /ACETAMINOPHEN [Percocet 1 tab PO Q4H PRN #20 tablet 10/05/1403/16/16 Rx 5/325 mg] Morphine Sulfate [Morphine Sulfate 30 mg PO Q12H 03/15/15 09/16/16 03/16/16 History ER] Oxybutynin [Ditropan] 10 mg PO DAILY 03/15/15 09/16/16 03/16/16 History Hydrocortisone 2.5% [Proctosol-Hc] 1 applic [place] BID #1 tube 04/15/15 09/16/16 Unknown Rx Lisinopril [Zestril TAB] 10 mg PO QDAY #30 tablet 04/15/15 09/16/16 03/16/16 Rx Pantoprazole [Protonix TAB] 40 mg PO QDAY #30 tablet 04/15/15 09/16/16 03/16/16 Rx Diazepam [Valium] 10 mg PO BID 11/09/15 09/16/16 03/16/16 History Fexofenadine/Pseudoephedrine 180 mg PO QDAY 11/09/15 09/16/16 03/16/16 History [Yolande-D 24 Hour Tablet] Hydroxyzine HCl [hydrOXYzine] 25 mg PO PRN PRN 11/09/15 09/16/16 03/16/16 History diphenhydrAMINE [Benadryl CAP] 25 mg PO Q8HR PRN 11/09/15 09/16/16 Unknown History Amitriptyline [Elavil] 50 mg PO QHS 03/17/16 09/16/16 03/16/16 History ALPRAZolam [Xanax TAB] 1 mg PO Q8H PRN 08/07/16 09/16/16 Unknown History Acetaminophen [Acetaminophen 8 650 mg PO Q8H PRN 08/07/16 09/16/16 09/16/16 History Hour] Insulin Aspart [NovoLOG Flexpen] 1 units SQ ACHS 08/07/16 09/16/16 Unknown History Metoprolol [Lopressor TAB] 25 mg PO BID #60 tablet 08/21/16 09/16/16 Unknown Rx Docusate Sodium [Colace CAP] 100 mg PO BID PRN 08/25/16 09/16/16 Unknown History Ascorbic Acid [Vitamin C] 500 mg PO QDAY tablet 09/01/16 09/16/16 Unknown Rx predniSONE [Deltasone] 10 mg PO DAILY 09/16/16 09/16/16 Unknown History Active Meds: Active Medications Al Hydrox/Mg Hydrox/Simethicone (Alum-Mag Hydrox-Simeth [id number]/5ml) 30 ml PO Q4H PRN PRN Reason: Indigestion Lipase/Protease/Amylase (Pancreaze Dr 10,500 Unit) 1 each FEEDTUBE PRN PRN PRN Reason: For Clogged Feeding Tube Bisacodyl (Dulcolax) 10 mg [place] QDAY PRN PRN Reason: constipation unrelieved by MOM Enoxaparin Sodium (Lovenox) 40 mg SUB-Q QDAY GIGI Haloperidol Lactate (Haldol) 5 mg IM Q4H PRN PRN Reason: Agitation Hydromorphone HCl (Dilaudid) 0.5 mg IV Q3HR PRN PRN Reason: Pain , Severe (7-10) Norepinephrine (Levophed Drip 4 Mg/Ns 250 Ml) 250 mls @ 7.5 mls/hr IV TITR GIGI ; 2 MCG/MIN PRN Reason: Protocol Last Titration: 09/17/16 02:48 Dose: 4 mcg/min Dextrose/Sodium Chloride (D5ns) 1,000 mls @ 100 mls/hr IV DIRECT GIGI Last Admin: 09/17/16 02:48 Dose: 100 mls/hr Piperacillin Sod/Tazobactam Sod (Zosyn/Ns 4.5gm/100ml) 100 mls @ 200 mls/hr IV Q8HR GIGI PRN Reason: Protocol Last Admin: 09/17/16 06:15 Dose: 200 mls/hr Lorazepam (Ativan) 2 mg IV Q4H PRN PRN Reason: Agitation Last Admin: 09/17/16 03:03 Dose: 2 mg Magnesium Hydroxide (Milk Of Magnesia) 30 ml PO Q4H PRN PRN Reason: Constipation Simple Syrup (Simple Syrup) 15 ml FEEDTUBE PRN PRN PRN Reason: Hypoglycemia Simple Syrup (Simple Syrup) 30 ml FEEDTUBE PRN PRN PRN Reason: Hypoglycemia Sodium Bicarbonate (Sodium Bicarbonate) 325 mg FEEDTUBE PRN PRN PRN Reason: For Clogged Feeding Tube Review of Systems ROS unobtainable: due to mental status Exam - Vital Signs Vital signs: Vital Signs Pulse Ox 98 09/16/16 12:33 - General Appearance General appearance: well-developed, well-nourished, obese, other (no distress) EENT: PERRL, mucous membranes moist, hearing intact, vision intact Neck: Present: neck supple Respiratory: Clear to Ascultation Heart: regular, S1S2, no murmurs Gastrointestinal: Present: normoactive bowel sounds. Absent: tenderness, distended, guarding Integumentary: decubiti (multiple, sacral area) Neurologic: no asterixis, confused, other (paraplegic) Musculoskeletal: Present: other (no edema) Psychiatric: mood/affect appropriate, cooperative Results - Lab Results 09/17/16 06:01 09/17/16 06:01 Most recent lab results Calcium 7.7 mg/dL (8.4-10.2) L 09/17/16 06:01 Assessment and Plan - Patient Problems (1) Acute renal failure Current Visit: Yes Status: Acute Plan to address problem: Acute Kidney Injury in the setting of sepsis / hypotension. Creatinine is better today. Continue IV fluids. (2) Hyperkalemia Current Visit: Yes Status: Acute Plan to address problem: Hyperkalemia in the setting of BAILEE. Potassium level is better today. (3) Septic shock Current Visit: Yes Status: Acute Plan to address problem: On Levophed. (4) Leukocytosis Current Visit: No Status: Acute
--- NOTE | 2016-09-17 09:41 | Progress Note ---
Assessment and Plan Assessment and plan: 1. Sepsis with shock vs adrenal insufficiency as he was on corticosteroids chronically Possible secondary to UTI +/- decubitus ulcers Blood and urine cultures obtained Started on broad-spectrum antibiotics, vancomycin and Zosyn, along with IV fluids and vasopressors Now off pressors and on low dose CS 2. Acute renal failure Likely vasomotor nephropathy due to dehydration Resolved with IV fluids 3. Hyperkalemia In the setting of acute renal failure, HARRISON inhibitor use and potassium supplementation Medically treated Potassium within normal limits this morning Continue to monitor 4. Elevated troponin No symptoms, EKG with no ischemic changes Likely nonspecific, in the setting of acute renal failure 5. Acute toxic metabolic encephalopathy Due to all of the above superimposed on narcotics/benzos use Treating underlying conditions and decreased dose of narcotics and benzos 6. DM Accu-Cheks and SSI to assess insulin requirements 7. HTN All antihypertensives on hold due to hypotension 8. Seizure disorder Resume Depakote 9. Paraplegia 10. Decubitus ulcers Consult wound care Antibiotics 11. Malnutrition Consult dietitian for supplementation 12. DVT prophylaxis Lovenox History Interval history: off pressors, doing well, no specific complaints Hospitalist Physical - Constitutional Vitals: Temp Pulse Resp BP Pulse Ox 99.1 F 77 16 110/49 98 09/17/16 07:56 09/17/16 07:15 09/17/16 07:15 09/17/16 07:15 09/17/16 08:46 General appearance: Present: no acute distress, obese - EENT Eyes: Present: PERRL, EOM intact. Absent: scleral icterus, conjunctival injection - Neck Neck: Present: supple, normal ROM. Absent: masses or JVD - Respiratory Respiratory effort: normal Respiratory: bilateral: CTA, negative: rales, rhonchi, wheezing - Cardiovascular Rhythm: regular Heart Sounds: Present: S1 & S2. Absent: systolic murmur - Extremities Extremities: no ischemia - Abdominal General gastrointestinal: soft, non-tender, non-distended, normal bowel sounds - Neurologic Neurologic: other (paraplegia) Results - Labs CBC & Chem 7: 09/17/16 06:01 09/17/16 06:01 Labs: Laboratory Last Values WBC 6.7 K/mm3 (4.5-11.0) 09/17/16 06:01 RBC 3.26 M/mm3 (3.65-5.03) L 09/17/16 06:01 Hgb 7.9 gm/dl (11.8-15.2) L 09/17/16 06:01 Hct 26.0 % (35.5-45.6) L 09/17/16 06:01 MCV 80 fl (84-94) L 09/17/16 06:01 MCH 24 pg (28-32) L 09/17/16 06:01 MCHC 30 % (32-34) L 09/17/16 06:01 RDW 19.1 % (13.2-15.2) H 09/17/16 06:01 Plt Count 279 K/mm3 (140-440) 09/17/16 06:01 Lymph % (Auto) 15.3 % (13.4-35.0) 09/17/16 06:01 [place] % (Auto) 13.0 % (0.0-7.3) H 09/17/16 06:01 Eos % (Auto) 1.7 % (0.0-4.3) 09/17/16 06:01 Baso % (Auto) 0.3 % (0.0-1.8) 09/17/16 06:01 Lymph # 1.0 K/mm3 (1.2-5.4) L 09/17/16 06:01 [place] # 0.9 K/mm3 (0.0-0.8) H 09/17/16 06:01 Eos # 0.1 K/mm3 (0.0-0.4) 09/17/16 06:01 Baso # 0.0 K/mm3 (0.0-0.1) 09/17/16 06:01 Add Manual Diff TNR 09/16/16 Unknown Seg Neutrophils % 69.7 % (40.0-70.0) 09/17/16 06:01 Seg Neutrophils # 4.7 K/mm3 (1.8-7.7) 09/17/16 06:01 PT 14.8 Sec. (12.2-14.9) 09/16/16 Unknown INR 1.17 (0.87-1.13) H 09/16/16 Unknown VBG pH 7.324 (7.320-7.420) 09/16/16 Unknown Sodium 144 mmol/L (137-145) 09/17/16 06:01 Potassium 4.2 mmol/L (3.6-5.0) 09/17/16 06:01 Chloride 102.9 mmol/L (98-107) 09/17/16 06:01 Carbon Dioxide 29 mmol/L (22-30) 09/17/16 06:01 Anion Gap 16 mmol/L 09/17/16 06:01 BUN 23 mg/dL (9-20) H 09/17/16 06:01 Creatinine 0.9 mg/dL (0.8-1.5) 09/17/16 06:01 Estimated GFR > 60 ml/min 09/17/16 06:01 BUN/Creatinine Ratio 25.55 % 09/17/16 06:01 Glucose 140 mg/dL (75-100) H 09/17/16 06:01 POC Glucose 153 (70-105) H 09/17/16 07:54 Lactic Acid 2.6 mmol/L (0.7-2.0) H* 09/16/16 Unknown Calcium 7.7 mg/dL (8.4-10.2) L 09/17/16 06:01 Total Bilirubin 0.4 mg/dL (0.1-1.2) 09/17/16 06:01 AST 41 units/L (5-40) H 09/17/16 06:01 ALT 48 units/L (7-56) 09/17/16 06:01 Alkaline Phosphatase 163 units/L (35-129) H 09/17/16 06:01 Total Creatine Kinase 24 units/L (55-170) L 09/16/16 Unknown CK-MB (CK-2) < 1.0 ng/mL (0.0-4.0) 09/16/16 Unknown CK-MB (CK-2) Rel Index 4.1 (0-4) H 09/16/16 Unknown Troponin T 0.145 ng/mL (0.00-0.029) H* 09/16/16 Unknown Total Protein 6.7 g/dL (6.3-8.2) 09/17/16 06:01 Albumin 2.7 g/dL (3.9-5) L 09/17/16 06:01 Albumin/Globulin Ratio 0.7 % 09/17/16 06:01 Triglycerides 180 mg/dL (2-149) H 09/16/16 Unknown Cholesterol 116 mg/dL (50-199) 09/16/16 Unknown LDL Cholesterol Direct 53 mg/dL (50-130) 09/16/16 Unknown HDL Cholesterol 27 mg/dL (40-59) L 09/16/16 Unknown Cholesterol/HDL Ratio 4.29 % 09/16/16 Unknown Urine Color Yellow (Yellow) 09/16/16 12:50 Urine Turbidity Clear (Clear) 09/16/16 12:50 Urine pH 6.0 (5.0-7.0) 09/16/16 12:50 Ur Specific [place] 1.010 (1.003-1.030) 09/16/16 12:50 Urine Protein <15 mg/dl mg/dL (Negative) 09/16/16 12:50 Urine Glucose (UA) Neg mg/dL (Negative) 09/16/16 12:50 Urine Ketones Neg mg/dL (Negative) 09/16/16 12:50 Urine Blood Neg (Negative) 09/16/16 12:50 Urine Nitrite Neg (Negative) 09/16/16 12:50 Urine Bilirubin Neg (Negative) 09/16/16 12:50 Urine Urobilinogen < 2.0 mg/dL (<2.0) 09/16/16 12:50 Ur Leukocyte Esterase Sm (Negative) 09/16/16 12:50 Urine WBC (Auto) 30.0 /HPF (0.0-6.0) H 09/16/16 12:50 Urine RBC (Auto) 10.0 /HPF (0.0-6.0) 09/16/16 12:50 Urine Mucus Few /HPF 09/16/16 12:50 - Imaging and Cardiology Chest x-ray: image reviewed (no acute findings)
[2016-09-17] MEDS: LOVENOX SUB-Q SCH (09:46)
--- NOTE | 2016-09-17 10:49 | Consultation ---
History of Present Illness - Reason for Consult Consult date: 09/17/16 Sepsis, Hypotension Requesting physician: YSABEL GONGORA - History of Present Illness 61 y/o male, known to our service as he has had several hospital admits in the last few months, admitted with altered mental status and hypotension with concern for sepsis. Patient with temp on admission. No elevation in white count. Started on broad spec abx therapy and vasopressors and transitioned to the ICU. This am now off pressors. Awake and more alert. Remainder is negative. Past History Past Medical History: other (chronic pain, anxiety, psych issues) Medications and Allergies Allergies Allergy/AdvReac Type Severity Reaction Status Date / Time raw onion Allergy Vomiting Uncoded 11/09/15 04:49 Home Medications Medication Instructions Recorded Confirmed Last Taken Type ALBUTEROL Inhaler [ProAir HFA 2 puff INHALATION Q4H PRN #7 inha 11/10/13 Unknown Rx Inhaler] DULoxetine [Cymbalta] 30 mg PO BID #60 capsule 11/10/13 09/16/16 03/16/16 Rx Divalproex Sodium [Depakote] 500 mg PO TID #90 tablet. 11/10/13 09/16/1603/16 Rx Furosemide [Lasix] 40 mg PO DAILY #30 tablet 11/10/13 09/16/16 03/16/16 Rx Potassium Chloride [Klor-Con M10] 20 meq PO DAILY #30 tab.er.prt 11/10/1303/16/16 Rx Sennosides [Senna Lax] 2 tab PO BID #60 tablet 11/10/13 09/16/16 03/16/16 Rx Aspirin [Aspirin TAB] 325 mg PO QDAY #30 tablet 09/10/14 09/16/16 03/16/16 Rx oxyCODONE /ACETAMINOPHEN [Percocet 1 tab PO Q4H PRN #20 tablet 10/05/1403/16/16 Rx 5/325 mg] Morphine Sulfate [Morphine Sulfate 30 mg PO Q12H 03/15/15 09/16/16 03/16/16 History ER] Oxybutynin [Ditropan] 10 mg PO DAILY 03/15/15 09/16/16 03/16/16 History Hydrocortisone 2.5% [Proctosol-Hc] 1 applic [place] BID #1 tube 04/15/15 09/16/16 Unknown Rx Lisinopril [Zestril TAB] 10 mg PO QDAY #30 tablet 04/15/15 09/16/16 03/16/16 Rx Pantoprazole [Protonix TAB] 40 mg PO QDAY #30 tablet 04/15/15 09/16/16 03/16/16 Rx Diazepam [Valium] 10 mg PO BID 11/09/15 09/16/16 03/16/16 History Fexofenadine/Pseudoephedrine 180 mg PO QDAY 11/09/15 09/16/16 03/16/16 History [Yolande-D 24 Hour Tablet] Hydroxyzine HCl [hydrOXYzine] 25 mg PO PRN PRN 11/09/15 09/16/16 03/16/16 History diphenhydrAMINE [Benadryl CAP] 25 mg PO Q8HR PRN 11/09/15 09/16/16 Unknown History Amitriptyline [Elavil] 50 mg PO QHS 03/17/16 09/16/16 03/16/16 History ALPRAZolam [Xanax TAB] 1 mg PO Q8H PRN 08/07/16 09/16/16 Unknown History Acetaminophen [Acetaminophen 8 650 mg PO Q8H PRN 08/07/16 09/16/16 09/16/16 History Hour] Insulin Aspart [NovoLOG Flexpen] 1 units SQ ACHS 08/07/16 09/16/16 Unknown History Metoprolol [Lopressor TAB] 25 mg PO BID #60 tablet 08/21/16 09/16/16 Unknown Rx Docusate Sodium [Colace CAP] 100 mg PO BID PRN 08/25/16 09/16/16 Unknown History Ascorbic Acid [Vitamin C] 500 mg PO QDAY tablet 09/01/16 09/16/16 Unknown Rx predniSONE [Deltasone] 10 mg PO DAILY 09/16/16 09/16/16 Unknown History Active Meds: Active Medications Al Hydrox/Mg Hydrox/Simethicone (Alum-Mag Hydrox-Simeth [id number]/5ml) 30 ml PO Q4H PRN PRN Reason: Indigestion Lipase/Protease/Amylase (Pancreaze Dr 10,500 Unit) 1 each FEEDTUBE PRN PRN PRN Reason: For Clogged Feeding Tube Bisacodyl (Dulcolax) 10 mg [place] QDAY PRN PRN Reason: constipation unrelieved by MOM Enoxaparin Sodium (Lovenox) 40 mg SUB-Q QDAY GIGI Last Admin: 09/17/16 09:46 Dose: 40 mg Haloperidol Lactate (Haldol) 5 mg IM Q4H PRN PRN Reason: Agitation Hydromorphone HCl (Dilaudid) 0.5 mg IV Q3HR PRN PRN Reason: Pain , Severe (7-10) Norepinephrine (Levophed Drip 4 Mg/Ns 250 Ml) 250 mls @ 7.5 mls/hr IV TITR GIGI ; 2 MCG/MIN PRN Reason: Protocol Last Titration: 09/17/16 09:47 Dose: 0 mcg/min Dextrose/Sodium Chloride (D5ns) 1,000 mls @ 100 mls/hr IV DIRECT GIGI Last Admin: 09/17/16 02:48 Dose: 100 mls/hr Piperacillin Sod/Tazobactam Sod (Zosyn/Ns 4.5gm/100ml) 100 mls @ 200 mls/hr IV Q8HR GIGI PRN Reason: Protocol Last Admin: 09/17/16 06:15 Dose: 200 mls/hr Lorazepam (Ativan) 2 mg IV Q4H PRN PRN Reason: Agitation Last Admin: 09/17/16 03:03 Dose: 2 mg Magnesium Hydroxide (Milk Of Magnesia) 30 ml PO Q4H PRN PRN Reason: Constipation Simple Syrup (Simple Syrup) 15 ml FEEDTUBE PRN PRN PRN Reason: Hypoglycemia Simple Syrup (Simple Syrup) 30 ml FEEDTUBE PRN PRN PRN Reason: Hypoglycemia Sodium Bicarbonate (Sodium Bicarbonate) 325 mg FEEDTUBE PRN PRN PRN Reason: For Clogged Feeding Tube Review of Systems ROS unobtainable: due to mental status Exam - Constitutional Vitals: Temp Pulse Resp BP Pulse Ox 99.1 F 82 16 110/49 98 09/17/16 07:56 09/17/16 09:56 09/17/16 07:15 09/17/16 07:15 09/17/16 08:46 General appearance: Present: no acute distress, obese, disheveled - EENT Eyes: Present: PERRL, EOM intact ENT: hearing intact - Neck Neck: Present: supple, normal ROM - Respiratory Respiratory effort: normal Respiratory: bilateral: CTA - Cardiovascular Rhythm: regular Heart Sounds: Present: S1 & S2 - Extremities Extremity abnormal: edema, cold (bilateral lower ext, left great toe is blue), pulses diminished - Abdominal General gastrointestinal: Present: soft, non-tender, normal bowel sounds Male genitourinary: Present: deferred - Rectal Rectal Exam: deferred Results - Labs CBC & Chem 7: 09/17/16 06:01 09/17/16 06:01 Labs: Abnormal lab results 09/16/16 09/16/16 09/16/16 Range/Units 20:49 22:01 22:01 WBC (4.5-11.0) K/mm3 RBC 3.41 L (3.65-5.03) M/mm3 Hgb 8.3 L (11.8-15.2) gm/dl Hct 27.2 L (35.5-45.6) % MCV 80 L (84-94) fl MCH 24 L (28-32) pg MCHC 31 L (32-34) % RDW 18.9 H (13.2-15.2) % Lymph % (Auto) 11.8 L (13.4-35.0) % [place] % (Auto) 11.9 H (0.0-7.3) % Lymph # 1.0 L (1.2-5.4) K/mm3 [place] # 1.0 H (0.0-0.8) K/mm3 Seg Neutrophils % 76.0 H (40.0-70.0) % Seg Neutrophils # (1.8-7.7) K/mm3 INR (0.87-1.13) Sodium (137-145) mmol/L Potassium (3.6-5.0) mmol/L Chloride (98-107) mmol/L BUN 27 H (9-20) mg/dL Creatinine (0.8-1.5) mg/dL Glucose 146 H (75-100) mg/dL POC Glucose (70-105) Lactic Acid (0.7-2.0) mmol/L Calcium 7.8 L (8.4-10.2) mg/dL AST 50 H (5-40) units/L Alkaline Phosphatase 189 H (35-129) units/L Total Creatine Kinase (55-170) units/L CK-MB (CK-2) Rel Index (0-4) Troponin T 0.049 H D (0.00-0.029) ng/mL Albumin 2.9 L (3.9-5) g/dL Triglycerides (2-149) mg/dL HDL Cholesterol (40-59) mg/dL 09/16/16 09/16/16 09/16/16 Range/Units Unknown Unknown Unknown WBC (4.5-11.0) K/mm3 RBC (3.65-5.03) M/mm3 Hgb (11.8-15.2) gm/dl Hct (35.5-45.6) % MCV (84-94) fl MCH (28-32) pg MCHC (32-34) % RDW (13.2-15.2) % Lymph % (Auto) (13.4-35.0) % [place] % (Auto) (0.0-7.3) % Lymph # (1.2-5.4) K/mm3 [place] # (0.0-0.8) K/mm3 Seg Neutrophils % (40.0-70.0) % Seg Neutrophils # (1.8-7.7) K/mm3 INR 1.17 H (0.87-1.13) Sodium 135 L (137-145) mmol/L Potassium 6.1 H* (3.6-5.0) mmol/L Chloride 94.1 L (98-107) mmol/L BUN 33 H (9-20) mg/dL Creatinine 2.0 H (0.8-1.5) mg/dL Glucose 173 H (75-100) mg/dL POC Glucose (70-105) Lactic Acid 2.6 H* (0.7-2.0) mmol/L Calcium 7.6 L (8.4-10.2) mg/dL AST 51 H (5-40) units/L Alkaline Phosphatase 206 H (35-129) units/L Total Creatine Kinase 24 L (55-170) units/L CK-MB (CK-2) Rel Index 4.1 H (0-4) Troponin T 0.145 H* (0.00-0.029) ng/mL Albumin 2.9 L (3.9-5) g/dL Triglycerides 180 H (2-149) mg/dL HDL Cholesterol 27 L (40-59) mg/dL 09/16/16 09/17/16 09/17/16 Range/Units Unknown 06:01 06:01 WBC 14.6 H (4.5-11.0) K/mm3 RBC 3.16 L 3.26 L (3.65-5.03) M/mm3 Hgb 7.7 L 7.9 L (11.8-15.2) gm/dl Hct 25.4 L 26.0 L (35.5-45.6) % MCV 80 L 80 L (84-94) fl MCH 24 L 24 L (28-32) pg MCHC 30 L 30 L (32-34) % RDW 19.1 H 19.1 H (13.2-15.2) % Lymph % (Auto) 8.5 L (13.4-35.0) % [place] % (Auto) 11.0 H 13.0 H (0.0-7.3) % Lymph # 1.0 L (1.2-5.4) K/mm3 [place] # 1.6 H 0.9 H (0.0-0.8) K/mm3 Seg Neutrophils % 79.7 H (40.0-70.0) % Seg Neutrophils # 11.6 H (1.8-7.7) K/mm3 INR (0.87-1.13) Sodium (137-145) mmol/L Potassium (3.6-5.0) mmol/L Chloride (98-107) mmol/L BUN 23 H (9-20) mg/dL Creatinine (0.8-1.5) mg/dL Glucose 140 H (75-100) mg/dL POC Glucose (70-105) Lactic Acid (0.7-2.0) mmol/L Calcium 7.7 L (8.4-10.2) mg/dL AST 41 H (5-40) units/L Alkaline Phosphatase 163 H (35-129) units/L Total Creatine Kinase (55-170) units/L CK-MB (CK-2) Rel Index (0-4) Troponin T (0.00-0.029) ng/mL Albumin 2.7 L (3.9-5) g/dL Triglycerides (2-149) mg/dL HDL Cholesterol (40-59) mg/dL 09/17/16 Range/Units 07:54 WBC (4.5-11.0) K/mm3 RBC (3.65-5.03) M/mm3 Hgb (11.8-15.2) gm/dl Hct (35.5-45.6) % MCV (84-94) fl MCH (28-32) pg MCHC (32-34) % RDW (13.2-15.2) % Lymph % (Auto) (13.4-35.0) % [place] % (Auto) (0.0-7.3) % Lymph # (1.2-5.4) K/mm3 [place] # (0.0-0.8) K/mm3 Seg Neutrophils % (40.0-70.0) % Seg Neutrophils # (1.8-7.7) K/mm3 INR (0.87-1.13) Sodium (137-145) mmol/L Potassium (3.6-5.0) mmol/L Chloride (98-107) mmol/L BUN (9-20) mg/dL Creatinine (0.8-1.5) mg/dL Glucose (75-100) mg/dL POC Glucose 153 H (70-105) Lactic Acid (0.7-2.0) mmol/L Calcium (8.4-10.2) mg/dL AST (5-40) units/L Alkaline Phosphatase (35-129) units/L Total Creatine Kinase (55-170) units/L CK-MB (CK-2) Rel Index (0-4) Troponin T (0.00-0.029) ng/mL Albumin (3.9-5) g/dL Triglycerides (2-149) mg/dL HDL Cholesterol (40-59) mg/dL - Imaging and Cardiology Chest x-ray: image reviewed (cardiomegaly but clear lung plascencia) Assessment and Plan 61 y/o male with altered mental status, fever, admitted to ICU with hypotension of unknown etiology, concern for sepsis. 1. Very similiar presentation in the past with previous admits. Patient apparently takes a substantial amount of pain meds and benzo's. Along with anti epileptic drugs. His altered mental state may have come from a combination of those meds. Will hold the scheduled pain meds and benzo's and agree with PRN pain and benzo therapy ordered. 2. Patient also appears to have been chronic prednisone therapy. Not sure if this was a taper from last admit or not. His hypotension could be related to relative adrenal insufficiency from lack of steroid. last dose that I could find in chart was 09/01. Will review last admit but recommend restarting prednisone therapy. Patient may need florinef therapy prison 3. Currently off vasopressor therapy and BP is stable. Continue IVF's and order diabetic diet. If BP remains stable over the next few hours. Will transition out of ICU. Continue supplemental O2. CCT 31 minutes
--- NOTE | 2016-09-17 11:32 | History and Physical Report ---
CHIEF COMPLAINT: Altered mental status. HISTORY OF PRESENT ILLNESS: A 61-year-old male with history of paraplegia, seizures, diabetes, hypertension, and COPD, who comes in for altered mental status with fever. The patient had a fever of 105.6, [facility] from [facility]. He was given Tylenol. Had multiple decubitus ulcers. A recent admission for sepsis; comes back for altered sensorium with high fevers. PAST MEDICAL HISTORY: Significant for paraplegia, hypertension, diabetes, COPD, seizure disorder, decubitus ulcers, anxiety disorder. CURRENT MEDICATIONS: Morphine sulfate 30 mg p.o. q.12, Ditropan 10 mg p.o. daily, Valium 10 mg p.o. b.i.d., fexofenadine 180 mg daily, hydroxyzine 25 mg p.o. p.r.n., amitriptyline 50 mg p.o. at bedtime, Xanax 0.1 mg p.o. q.8, acetaminophen 650 mg p.o. q.8, NovoLog 1 unit subcutaneous a.c. and at bedtime, prednisone 10 mg p.o. daily, albuterol inhalers in the past. PAST MEDICAL HISTORY: As mentioned, hypertension, diabetes, seizures, depressive disorder, paraplegia, lumbosacral spondylosis, metabolic encephalitis. PAST SURGICAL HISTORY: History of shoulder surgery. SOCIAL HISTORY: He does not smoke, [facility] resident. REVIEW OF SYSTEMS: Significant for high fever, confusion, and altered sensorium. PHYSICAL EXAMINATION: GENERAL: Elderly male with altered sensorium. VITAL SIGNS: Temperature of 105 from the [facility], here it is 99.9. Blood pressure is 103/55. Initially, it was low in the ER ---with IV fluids, it has improved , HEENT: Dry mucous membranes. NECK: Supple, no lymphadenopathy, no thyromegaly. LUNGS: Clear to auscultation and percussion. Good air entry. CVS: S1, S2 heard. No gallop, no murmur, no rub. Apical impulse in left fifth intercostal space and midclavicular line. ABDOMEN: Soft and benign. No hepatosplenomegaly. EXTREMITIES: Slight wasting present. Also decreased movement, power is about 2/5. SKIN: Decubitus ulcers present, the area is not mentioned. LABORATORY DATA: Significant for a white count of 8.2, H and H of 8.3 and 27.2, platelet count is 315,000. BUN and creatinine are 27 and 1.3. Sodium is 141, potassium is 4.6. Lactic acid is 2.1. AST is 50, ALT is 50, triglycerides of 180. Urine shows 30 white cells. ASSESSMENT AND PLAN: 1. Septic shock syndrome. The patient on broad-spectrum antibiotics. We will start her on Zosyn, but changed to meropenem because of the penicillin allergy. 2. Hypertension. IV fluids and pressors if necessary. 3. Urinary tract infection. Meropenem should cover the gram-negative bacteria. 4. Hyperkalemia, mild. Should correct. Potassium was now 4.6. 5. Insulin-dependent diabetes, coverage for the time being. 4. Urinary incontinence. Continue oxybutynin. 5. Decubitus ulcers, wound care consult requested. 6. Depression. Continue amitriptyline. 7. Deep venous thrombosis prophylaxis, Lovenox 40 mg subcutaneous daily. 9. IV fluids. Pressors if necessary. CRITICAL CARE STATEMENT: The high probability of a clinically significant sudden or life-threatening deterioration of the cardiorespiratory system, required my full and direct attention, intervention, and personal management. The aggregate critical time was 40 minutes. The time is in addition to the time spent performing reported procedures but include, 1. Data reviewing and interpretation. 2. Patient assessment and monitoring of vital signs. 3. Documentation, 4. Medication orders and management. JOB# [id number] ANAM/TANISHA BARBOSA
[2016-09-17] MEDS ORDERED: NACL 0.9% 1,000 ML IR ONE (15:34)
[2016-09-17] MEDS ORDERED: D50W (25GM) IV PRN (22:59)
[2016-09-18 07:17] LABS: Alanine Aminotransferase 40 units/L (7-56); Albumin 2.7 g/dL (3.9-5); Albumin/Globulin Ratio 0.7 %; Alkaline Phosphatase 153 units/L (35-129); Bilirubin,Total 0.3 mg/dL (0.1-1.2); Blood Urea Nitrogen 10 mg/dL (9-20); Calcium 7.8 mg/dL (8.4-10.2); Carbon Dioxide 27 mmol/L (22-30); Chloride 100.6 mmol/L (98-107); Glucose 157 mg/dL (75-100); Sodium 140 mmol/L (137-145); Total Protein 6.7 g/dL (6.3-8.2)
[2016-09-18 07:30] LABS: Basophils % (Auto) 0.2 % (0.0-1.8); Eosinophils % (Auto) 0.1 % (0.0-4.3); Hematocrit 25.8 % (35.5-45.6); Mean Corpuscular HGB Conc 31 % (32-34); Mean Corpuscular Volume 79 fl (84-94); Platelet Count 253 K/mm3 (140-440); Red Blood Count 3.26 M/mm3 (3.65-5.03); Red Cell Distribution Width 18.8 % (13.2-15.2); White Blood Count 3.9 K/mm3 (4.5-11.0)
[2016-09-18 07:33] LABS: Mean Corpuscular Hemoglobin 25 pg (28-32)
[2016-09-18 07:36] LABS: Anion Gap 16 mmol/L
--- NOTE | 2016-09-18 08:11 | Progress Note ---
Assessment and Plan - Patient Problems (1) Acute renal failure Current Visit: Yes Status: Acute Plan to address problem: Acute Kidney Injury in the setting of sepsis / hypotension. Creatinine has improved to baseline. Hemodynamically stable. (2) Hyperkalemia Current Visit: Yes Status: Acute Plan to address problem: Hyperkalemia in the setting of BAILEE. Potassium level is better today. (3) Septic shock Current Visit: Yes Status: Acute Plan to address problem: Improved. (4) Leukocytosis Current Visit: No Status: Acute Subjective Date of service: 09/18/16 Interval history: Patient denies any new compliant. Objective - Vital Signs Vital signs: Vital Signs - 12hr 09/17/16 09/17/16 09/17/16 20:11 20:21 20:31 Temperature Pulse Rate 81 81 85 Pulse Rate [ Brachial] Respiratory 16 17 16 Rate Respiratory Rate [Sacrum] Blood Pressure 104/49 104/49 104/49 O2 Sat by Pulse 89 Oximetry 09/17/16 09/17/16 09/17/16 20:41 20:51 21:01 Temperature Pulse Rate 81 78 80 Pulse Rate [ Brachial] Respiratory 16 14 10 L Rate Respiratory Rate [Sacrum] Blood Pressure 104/49 116/50 116/50 O2 Sat by Pulse Oximetry 09/17/16 09/17/16 22:00 23:46 Temperature 98.7 F Pulse Rate Pulse Rate [ 84 Brachial] Respiratory 22 Rate Respiratory 18 Rate [Sacrum] Blood Pressure 131/51 O2 Sat by Pulse 100 96 Oximetry - General Appearance General appearance: well-developed, well-nourished, obese, other (sleeping, arousable) EENT: PERRL, mucous membranes moist Neck: supple Respiratory: Present: Clear to Ascultation Cardiology: regular, S1S2, no murmurs Gastrointestinal: normoactive bowel sounds, no tenderness, no distended, obese Integumentary: decubiti, other (bilateral LE ulcers noted) Neurologic: confused, other (paraplegia noted) Musculoskeletal: other (trace pedal edema) - Lab 09/18/16 06:27 09/18/16 06:27 Most recent lab results Calcium 7.8 mg/dL (8.4-10.2) L 09/18/16 06:27
[2016-09-18] MEDS: NOVOLOG SUB-Q SCH ×4 (08:46→22:40)
[2016-09-18] MEDS: LOVENOX SUB-Q SCH (11:59)
[2016-09-18] MEDS ORDERED: FLUARIX QUAD 2016-2017(36 MOS+) IM ONE (12:00)
[2016-09-18] MEDS ORDERED: PNEUMOVAX 23 IM ONE (12:00)
--- NOTE | 2016-09-18 14:21 | Progress Note ---
Assessment and Plan 61 y/o male with altered mental status, fever, admitted to ICU with hypotension of unknown etiology, concern for sepsis. 1. Pulm status stable. Will sign off for now. Call if questions. All others per primary team. Subjective Date of service: 09/18/16 Interval history: successful transition out of the ICU. Pulm status is stable Objective - Constitutional Vitals: Vital Signs - 12hr 09/18/16 09/18/16 08:00 11:32 Temperature 98.1 F 98.3 F Pulse Rate [ 73 86 Right Radial] Respiratory 18 20 Rate Blood Pressure 157/76 151/85 [Left Arm] O2 Sat by Pulse 98 98 Oximetry - Labs CBC & Chem 7: 09/18/16 06:27 09/18/16 06:27 Labs: Abnormal lab results 09/17/16 09/17/16 09/18/16 Range/Units 16:06 23:06 06:27 WBC 3.9 L (4.5-11.0) K/mm3 RBC 3.26 L (3.65-5.03) M/mm3 Hgb 8.0 L (11.8-15.2) gm/dl Hct 25.8 L (35.5-45.6) % MCV 79 L (84-94) fl MCH 25 L (28-32) pg MCHC 31 L (32-34) % RDW 18.8 H (13.2-15.2) % [place] % (Auto) 7.6 H (0.0-7.3) % Lymph # 0.7 L (1.2-5.4) K/mm3 Seg Neutrophils % 73.6 H (40.0-70.0) % Creatinine (0.8-1.5) mg/dL Glucose (75-100) mg/dL POC Glucose 201 H 167 H (70-105) Calcium (8.4-10.2) mg/dL Alkaline Phosphatase (35-129) units/L Albumin (3.9-5) g/dL 09/18/16 09/18/16 Range/Units 06:27 10:11 WBC (4.5-11.0) K/mm3 RBC (3.65-5.03) M/mm3 Hgb (11.8-15.2) gm/dl Hct (35.5-45.6) % MCV (84-94) fl MCH (28-32) pg MCHC (32-34) % RDW (13.2-15.2) % [place] % (Auto) (0.0-7.3) % Lymph # (1.2-5.4) K/mm3 Seg Neutrophils % (40.0-70.0) % Creatinine 0.5 L (0.8-1.5) mg/dL Glucose 157 H (75-100) mg/dL POC Glucose 149 H (70-105) Calcium 7.8 L (8.4-10.2) mg/dL Alkaline Phosphatase 153 H (35-129) units/L Albumin 2.7 L (3.9-5) g/dL
--- NOTE | 2016-09-18 18:51 | Progress Note ---
Assessment and Plan Assessment and plan: 1. Sepsis with shock vs adrenal insufficiency as he was on corticosteroids chronically Taught to be possible secondary to UTI +/- decubitus ulcers, but all cultures negative Started on corticosteroids and pressors weaned off soon after Antibiotics is discontinued Continue low-dose iv corticosteroids 2. Acute renal failure Likely vasomotor nephropathy due to dehydration Resolved with IV fluids 3. Hyperkalemia In the setting of acute renal failure, HARRISON inhibitor use and potassium supplementation Medically treated Potassium within normal limits now Continue to monitor 4. Elevated troponin No symptoms, EKG with no ischemic changes Likely nonspecific, in the setting of acute renal failure 5. Acute toxic metabolic encephalopathy Due to all of the above superimposed on narcotics/benzos use Treating underlying conditions and decreased dose of narcotics and benzos 6. DM Accu-Cheks and SSI to assess insulin requirements 7. HTN All antihypertensives on hold due to hypotension on admission Currently BP within normal limits on no medications 8. Seizure disorder Resume Depakote 9. Paraplegia 10. Decubitus ulcers Local wound care 11. Malnutrition Dietitian consulted for supplementation 12. DVT prophylaxis Lovenox History Interval history: no specific complaints no fever Hospitalist Physical - Constitutional Vitals: Temp Pulse Resp BP Pulse Ox 98.0 F 86 20 155/91 100 09/18/16 16:19 09/18/16 16:19 09/18/16 16:19 09/18/16 16:19 09/18/16 16:19 General appearance: Present: no acute distress, obese - EENT Eyes: Present: PERRL, EOM intact. Absent: scleral icterus, conjunctival injection - Neck Neck: Present: supple, normal ROM. Absent: masses or JVD - Respiratory Respiratory effort: normal Respiratory: bilateral: diminished, negative: rales, rhonchi, wheezing - Cardiovascular Rhythm: regular Heart Sounds: Present: S1 & S2. Absent: systolic murmur - Extremities Extremities: no ischemia, abnormal (multiple decubitus ulcers) - Abdominal General gastrointestinal: soft, non-tender, non-distended, normal bowel sounds - Neurologic Neurologic: other (paraplegia) Results - Labs CBC & Chem 7: 09/18/16 06:27 09/19/16 06:52 Labs: Laboratory Last Values WBC 3.9 K/mm3 (4.5-11.0) L 09/18/16 06:27 RBC 3.26 M/mm3 (3.65-5.03) L 09/18/16 06:27 Hgb 8.0 gm/dl (11.8-15.2) L 09/18/16 06:27 Hct 25.8 % (35.5-45.6) L 09/18/16 06:27 MCV 79 fl (84-94) L 09/18/16 06:27 MCH 25 pg (28-32) L 09/18/16 06:27 MCHC 31 % (32-34) L 09/18/16 06:27 RDW 18.8 % (13.2-15.2) H 09/18/16 06:27 Plt Count 253 K/mm3 (140-440) 09/18/16 06:27 Lymph % (Auto) 18.5 % (13.4-35.0) 09/18/16 06:27 [place] % (Auto) 7.6 % (0.0-7.3) H 09/18/16 06:27 Eos % (Auto) 0.1 % (0.0-4.3) 09/18/16 06:27 Baso % (Auto) 0.2 % (0.0-1.8) 09/18/16 06:27 Lymph # 0.7 K/mm3 (1.2-5.4) L 09/18/16 06:27 [place] # 0.3 K/mm3 (0.0-0.8) 09/18/16 06:27 Eos # 0.0 K/mm3 (0.0-0.4) 09/18/16 06:27 Baso # 0.0 K/mm3 (0.0-0.1) 09/18/16 06:27 Add Manual Diff TNR 09/16/16 Unknown Seg Neutrophils % 73.6 % (40.0-70.0) H 09/18/16 06:27 Seg Neutrophils # 2.9 K/mm3 (1.8-7.7) 09/18/16 06:27 PT 14.8 Sec. (12.2-14.9) 09/16/16 Unknown INR 1.17 (0.87-1.13) H 09/16/16 Unknown VBG pH 7.324 (7.320-7.420) 09/16/16 Unknown Sodium 140 mmol/L (137-145) 09/18/16 06:27 Potassium 4.0 mmol/L (3.6-5.0) 09/18/16 06:27 Chloride 100.6 mmol/L (98-107) 09/18/16 06:27 Carbon Dioxide 27 mmol/L (22-30) 09/18/16 06:27 Anion Gap 16 mmol/L 09/18/16 06:27 BUN 10 mg/dL (9-20) 09/18/16 06:27 Creatinine 0.5 mg/dL (0.8-1.5) L 09/18/16 06:27 Estimated GFR > 60 ml/min 09/18/16 06:27 BUN/Creatinine Ratio 20.00 % 09/18/16 06:27 Glucose 157 mg/dL (75-100) H 09/18/16 06:27 POC Glucose 200 (70-105) H 09/18/16 16:21 Lactic Acid 2.6 mmol/L (0.7-2.0) H* 09/16/16 Unknown Calcium 7.8 mg/dL (8.4-10.2) L 09/18/16 06:27 Total Bilirubin 0.3 mg/dL (0.1-1.2) 09/18/16 06:27 AST 28 units/L (5-40) 09/18/16 06:27 ALT 40 units/L (7-56) 09/18/16 06:27 Alkaline Phosphatase 153 units/L (35-129) H 09/18/16 06:27 Total Creatine Kinase 24 units/L (55-170) L 09/16/16 Unknown CK-MB (CK-2) < 1.0 ng/mL (0.0-4.0) 09/16/16 Unknown CK-MB (CK-2) Rel Index 4.1 (0-4) H 09/16/16 Unknown Troponin T 0.145 ng/mL (0.00-0.029) H* 09/16/16 Unknown Total Protein 6.7 g/dL (6.3-8.2) 09/18/16 06:27 Albumin 2.7 g/dL (3.9-5) L 09/18/16 06:27 Albumin/Globulin Ratio 0.7 % 09/18/16 06:27 Triglycerides 180 mg/dL (2-149) H 09/16/16 Unknown Cholesterol 116 mg/dL (50-199) 09/16/16 Unknown LDL Cholesterol Direct 53 mg/dL (50-130) 09/16/16 Unknown HDL Cholesterol 27 mg/dL (40-59) L 09/16/16 Unknown Cholesterol/HDL Ratio 4.29 % 09/16/16 Unknown Urine Color Yellow (Yellow) 09/16/16 12:50 Urine Turbidity Clear (Clear) 09/16/16 12:50 Urine pH 6.0 (5.0-7.0) 09/16/16 12:50 Ur Specific [place] 1.010 (1.003-1.030) 09/16/16 12:50 Urine Protein <15 mg/dl mg/dL (Negative) 09/16/16 12:50 Urine Glucose (UA) Neg mg/dL (Negative) 09/16/16 12:50 Urine Ketones Neg mg/dL (Negative) 09/16/16 12:50 Urine Blood Neg (Negative) 09/16/16 12:50 Urine Nitrite Neg (Negative) 09/16/16 12:50 Urine Bilirubin Neg (Negative) 09/16/16 12:50 Urine Urobilinogen < 2.0 mg/dL (<2.0) 09/16/16 12:50 Ur Leukocyte Esterase Sm (Negative) 09/16/16 12:50 Urine WBC (Auto) 30.0 /HPF (0.0-6.0) H 09/16/16 12:50 Urine RBC (Auto) 10.0 /HPF (0.0-6.0) 09/16/16 12:50 Urine Mucus Few /HPF 09/16/16 12:50
[2016-09-19 07:23] LABS: Blood Urea Nitrogen 9 mg/dL (9-20); Calcium 8.1 mg/dL (8.4-10.2); Carbon Dioxide 27 mmol/L (22-30); Chloride 100.2 mmol/L (98-107); Glucose 136 mg/dL (75-100); Potassium 3.4 mmol/L (3.6-5.0); Sodium 139 mmol/L (137-145)
[2016-09-19 07:24] LABS: Anion Gap 15 mmol/L
[2016-09-19] MEDS: NOVOLOG SUB-Q SCH ×4 (07:30→22:08)
--- NOTE | 2016-09-19 09:35 | Progress Note ---
Assessment and Plan - Patient Problems (1) Acute renal failure Current Visit: Yes Status: Acute Plan to address problem: Acute Kidney Injury in the setting of sepsis / hypotension. Creatinine has improved to baseline. Hemodynamically stable. Replete K. Will sign off. Please call with any questions. (2) Hyperkalemia Current Visit: Yes Status: Acute Plan to address problem: He is hypokalemic now. (3) Septic shock Current Visit: Yes Status: Acute Plan to address problem: Improved. (4) Leukocytosis Current Visit: No Status: Acute Subjective Date of service: 09/19/16 Objective - Vital Signs Vital signs: Vital Signs - 12hr 09/18/16 09/19/16 09/19/16 23:11 06:00 07:19 Temperature 97.8 F 100.0 F H Pulse Rate 82 Pulse Rate [ 77 84 From Monitor] Respiratory 18 16 Rate Blood Pressure 134/63 143/65 [Left Arm] O2 Sat by Pulse 98 98 Oximetry - General Appearance General appearance: well-developed, well-nourished, obese, other (sleeping, arousable) EENT: PERRL, mucous membranes moist Neck: supple Respiratory: Present: Clear to Ascultation Cardiology: regular, S1S2, no murmurs Gastrointestinal: normoactive bowel sounds, no tenderness, no distended, no guarding, obese Integumentary: decubiti, other (multiple ulcers over both LEs noted) Neurologic: other (not following any command) Musculoskeletal: other (trace pedal edema noted) - Lab 09/18/16 06:27 09/19/16 06:52 Most recent lab results Calcium 8.1 mg/dL (8.4-10.2) L 09/19/16 06:52
[2016-09-19] MEDS: LOVENOX SUB-Q SCH (10:48)
[2016-09-19] MEDS ORDERED: K-DUR PO ONE (13:01)
--- NOTE | 2016-09-19 20:02 | Progress Note ---
Assessment and Plan Assessment and plan: 1. Sepsis with shock vs adrenal insufficiency as he was on corticosteroids chronically Taught to be secondary to UTI +/- decubitus ulcers, but all cultures negative Hypotension resolved after was started on corticosteroids Antibiotics discontinued Change corticosteroids to by mouth 2. Acute renal failure Likely vasomotor nephropathy due to dehydration Resolved with IV fluids 3. Hyperkalemia In the setting of acute renal failure, HARRISON inhibitor use and potassium supplementation Medically treated Now potassium at the lower limit Monitor 4. Elevated troponin on admission No symptoms, EKG with no ischemic changes Likely nonspecific, in the setting of acute renal failure 5. Acute toxic metabolic encephalopathy Due to all of the above superimposed on narcotics/benzos use Treating underlying conditions and decreased dose of narcotics and benzos 6. DM Accu-Cheks and SSI 7. HTN All antihypertensives on hold due to hypotension on admission Currently BP within normal limits on no medications 8. Seizure disorder Resume Depakote 9. Paraplegia 10. Decubitus ulcers Local wound care 11. Malnutrition Dietitian consulted for supplementation 12. DVT prophylaxis Lovenox History Interval history: no acute events Hospitalist Physical - Constitutional Vitals: Temp Pulse Resp BP Pulse Ox 98.7 F 89 18 135/77 96 09/19/16 14:41 09/19/16 14:41 09/19/16 14:41 09/19/16 14:41 09/19/16 14:41 General appearance: Present: no acute distress, obese - EENT Eyes: Present: PERRL, EOM intact. Absent: scleral icterus, conjunctival injection - Neck Neck: Present: supple. Absent: enlarged thyroid, masses or JVD - Respiratory Respiratory effort: normal Respiratory: bilateral: diminished, negative: rhonchi, wheezing - Cardiovascular Rhythm: regular Heart Sounds: Present: S1 & S2. Absent: systolic murmur - Extremities Extremities: no ischemia, abnormal (multiple decubitus ulcers) - Abdominal General gastrointestinal: soft, non-tender, non-distended, normal bowel sounds - Integumentary Integumentary: Present: warm, dry, pale. Absent: rash - Neurologic Neurologic: other (cardioplegia) Results - Labs CBC & Chem 7: 09/18/16 06:27 09/19/16 06:52 Labs: Laboratory Last Values WBC 3.9 K/mm3 (4.5-11.0) L 09/18/16 06:27 RBC 3.26 M/mm3 (3.65-5.03) L 09/18/16 06:27 Hgb 8.0 gm/dl (11.8-15.2) L 09/18/16 06:27 Hct 25.8 % (35.5-45.6) L 09/18/16 06:27 MCV 79 fl (84-94) L 09/18/16 06:27 MCH 25 pg (28-32) L 09/18/16 06:27 MCHC 31 % (32-34) L 09/18/16 06:27 RDW 18.8 % (13.2-15.2) H 09/18/16 06:27 Plt Count 253 K/mm3 (140-440) 09/18/16 06:27 Lymph % (Auto) 18.5 % (13.4-35.0) 09/18/16 06:27 [place] % (Auto) 7.6 % (0.0-7.3) H 09/18/16 06:27 Eos % (Auto) 0.1 % (0.0-4.3) 09/18/16 06:27 Baso % (Auto) 0.2 % (0.0-1.8) 09/18/16 06:27 Lymph # 0.7 K/mm3 (1.2-5.4) L 09/18/16 06:27 [place] # 0.3 K/mm3 (0.0-0.8) 09/18/16 06:27 Eos # 0.0 K/mm3 (0.0-0.4) 09/18/16 06:27 Baso # 0.0 K/mm3 (0.0-0.1) 09/18/16 06:27 Add Manual Diff TNR 09/16/16 Unknown Seg Neutrophils % 73.6 % (40.0-70.0) H 09/18/16 06:27 Seg Neutrophils # 2.9 K/mm3 (1.8-7.7) 09/18/16 06:27 PT 14.8 Sec. (12.2-14.9) 09/16/16 Unknown INR 1.17 (0.87-1.13) H 09/16/16 Unknown VBG pH 7.324 (7.320-7.420) 09/16/16 Unknown Sodium 139 mmol/L (137-145) 09/19/16 06:52 Potassium 3.4 mmol/L (3.6-5.0) L 09/19/16 06:52 Chloride 100.2 mmol/L (98-107) 09/19/16 06:52 Carbon Dioxide 27 mmol/L (22-30) 09/19/16 06:52 Anion Gap 15 mmol/L 09/19/16 06:52 BUN 9 mg/dL (9-20) 09/19/16 06:52 Creatinine 0.5 mg/dL (0.8-1.5) L 09/19/16 06:52 Estimated GFR > 60 ml/min 09/19/16 06:52 BUN/Creatinine Ratio 18.00 % 09/19/16 06:52 Glucose 136 mg/dL (75-100) H 09/19/16 06:52 POC Glucose 280 (70-105) H 09/19/16 16:54 Lactic Acid 2.6 mmol/L (0.7-2.0) H* 09/16/16 Unknown Calcium 8.1 mg/dL (8.4-10.2) L 09/19/16 06:52 Total Bilirubin 0.3 mg/dL (0.1-1.2) 09/18/16 06:27 AST 28 units/L (5-40) 09/18/16 06:27 ALT 40 units/L (7-56) 09/18/16 06:27 Alkaline Phosphatase 153 units/L (35-129) H 09/18/16 06:27 Total Creatine Kinase 24 units/L (55-170) L 09/16/16 Unknown CK-MB (CK-2) < 1.0 ng/mL (0.0-4.0) 09/16/16 Unknown CK-MB (CK-2) Rel Index 4.1 (0-4) H 09/16/16 Unknown Troponin T 0.145 ng/mL (0.00-0.029) H* 09/16/16 Unknown Total Protein 6.7 g/dL (6.3-8.2) 09/18/16 06:27 Albumin 2.7 g/dL (3.9-5) L 09/18/16 06:27 Albumin/Globulin Ratio 0.7 % 09/18/16 06:27 Triglycerides 180 mg/dL (2-149) H 09/16/16 Unknown Cholesterol 116 mg/dL (50-199) 09/16/16 Unknown LDL Cholesterol Direct 53 mg/dL (50-130) 09/16/16 Unknown HDL Cholesterol 27 mg/dL (40-59) L 09/16/16 Unknown Cholesterol/HDL Ratio 4.29 % 09/16/16 Unknown Urine Color Yellow (Yellow) 09/16/16 12:50 Urine Turbidity Clear (Clear) 09/16/16 12:50 Urine pH 6.0 (5.0-7.0) 09/16/16 12:50 Ur Specific [place] 1.010 (1.003-1.030) 09/16/16 12:50 Urine Protein <15 mg/dl mg/dL (Negative) 09/16/16 12:50 Urine Glucose (UA) Neg mg/dL (Negative) 09/16/16 12:50 Urine Ketones Neg mg/dL (Negative) 09/16/16 12:50 Urine Blood Neg (Negative) 09/16/16 12:50 Urine Nitrite Neg (Negative) 09/16/16 12:50 Urine Bilirubin Neg (Negative) 09/16/16 12:50 Urine Urobilinogen < 2.0 mg/dL (<2.0) 09/16/16 12:50 Ur Leukocyte Esterase Sm (Negative) 09/16/16 12:50 Urine WBC (Auto) 30.0 /HPF (0.0-6.0) H 09/16/16 12:50 Urine RBC (Auto) 10.0 /HPF (0.0-6.0) 09/16/16 12:50 Urine Mucus Few /HPF 09/16/16 12:50
[2016-09-20 05:10] LABS: Basophils % (Auto) 0.4 % (0.0-1.8); Eosinophils % (Auto) 0.6 % (0.0-4.3); Hemoglobin 8.7 gm/dl (11.8-15.2); Mean Corpuscular HGB Conc 30 % (32-34); Mean Corpuscular Volume 78 fl (84-94); Platelet Count 300 K/mm3 (140-440); Red Blood Count 3.72 M/mm3 (3.65-5.03); Red Cell Distribution Width 18.9 % (13.2-15.2); White Blood Count 4.6 K/mm3 (4.5-11.0)
[2016-09-20 05:13] LABS: Mean Corpuscular Hemoglobin 24 pg (28-32)
[2016-09-20 05:30] LABS: Anion Gap 17 mmol/L; BUN/Creatinine Ratio 13.33; Blood Urea Nitrogen 8 mg/dL (9-20); Calcium 7.9 mg/dL (8.4-10.2); Carbon Dioxide 26 mmol/L (22-30); Chloride 98.4 mmol/L (98-107); Glucose 109 mg/dL (75-100); Iron 15 ug/dL (49-181); Magnesium 1.8 mg/dL (1.7-2.3); Potassium 3.5 mmol/L (3.6-5.0); Sodium 138 mmol/L (137-145); Transferrin 210 mg/dl (180-329)
[2016-09-20] MEDS: NOVOLOG SUB-Q SCH ×3 (09:52→19:11)
[2016-09-20] MEDS: LOVENOX SUB-Q SCH (09:53)
[2016-09-20] MEDS: DELTASONE PO SCH (09:53)
--- NOTE | 2016-09-20 18:21 | Progress Note ---
Assessment and Plan Assessment and plan: 1. Sepsis with shock vs adrenal insufficiency as he was on corticosteroids chronically Taught to be secondary to UTI +/- decubitus ulcers, but all cultures negative Hypotension resolved after was started on corticosteroids Antibiotics discontinued Corticosteroids changed to by mouth 2. Acute renal failure Likely vasomotor nephropathy due to dehydration Resolved with IV fluids 3. Hyperkalemia In the setting of acute renal failure, HARRISON inhibitor use and potassium supplementation Medically treated Continue to monitor 4. Elevated troponin on admission No symptoms, EKG with no ischemic changes Likely nonspecific, in the setting of acute renal failure 5. Acute toxic metabolic encephalopathy Due to all of the above superimposed on narcotics/benzos use Treating underlying conditions and decreased dose of narcotics and benzos Mental status back to baseline 6. DM Accu-Cheks and SSI 7. HTN All antihypertensives on hold due to hypotension on admission Currently BP within normal limits on no medications 8. Seizure disorder Depakote resumed 9. Paraplegia 10. Decubitus ulcers Local wound care 11. Malnutrition Dietitian consulted for supplementation 12. DVT prophylaxis Lovenox History Interval history: no acute events, no specific complaints Hospitalist Physical - Constitutional Vitals: Temp Pulse Resp BP Pulse Ox 99.1 F 81 18 134/61 95 09/20/16 12:35 09/20/16 12:35 09/20/16 12:35 09/20/16 12:35 09/20/16 12:35 General appearance: Present: no acute distress, obese - EENT Eyes: Present: PERRL, EOM intact. Absent: scleral icterus, conjunctival injection - Neck Neck: Present: supple, normal ROM. Absent: masses or JVD - Respiratory Respiratory effort: normal Respiratory: bilateral: diminished, negative: rhonchi, wheezing - Cardiovascular Rhythm: regular Heart Sounds: Present: S1 & S2. Absent: systolic murmur - Extremities Extremities: no ischemia, abnormal (edema, multiple decubitus ulcers) - Abdominal General gastrointestinal: soft, non-tender, non-distended, normal bowel sounds - Psychiatric Psychiatric: cooperative - Neurologic Neurologic: other (paraplegia) Results - Labs CBC & Chem 7: 09/20/16 04:42 09/20/16 04:42 Labs: Laboratory Last Values WBC 4.6 K/mm3 (4.5-11.0) 09/20/16 04:42 RBC 3.72 M/mm3 (3.65-5.03) 09/20/16 04:42 Hgb 8.7 gm/dl (11.8-15.2) L 09/20/16 04:42 Hct 29.0 % (35.5-45.6) L 09/20/16 04:42 MCV 78 fl (84-94) L 09/20/16 04:42 MCH 24 pg (28-32) L 09/20/16 04:42 MCHC 30 % (32-34) L 09/20/16 04:42 RDW 18.9 % (13.2-15.2) H 09/20/16 04:42 Plt Count 300 K/mm3 (140-440) 09/20/16 04:42 Lymph % (Auto) 36.7 % (13.4-35.0) H 09/20/16 04:42 [place] % (Auto) 9.3 % (0.0-7.3) H 09/20/16 04:42 Eos % (Auto) 0.6 % (0.0-4.3) 09/20/16 04:42 Baso % (Auto) 0.4 % (0.0-1.8) 09/20/16 04:42 Lymph # 1.7 K/mm3 (1.2-5.4) 09/20/16 04:42 [place] # 0.4 K/mm3 (0.0-0.8) 09/20/16 04:42 Eos # 0.0 K/mm3 (0.0-0.4) 09/20/16 04:42 Baso # 0.0 K/mm3 (0.0-0.1) 09/20/16 04:42 Add Manual Diff TNR 09/16/16 Unknown Seg Neutrophils % 53.0 % (40.0-70.0) 09/20/16 04:42 Seg Neutrophils # 2.4 K/mm3 (1.8-7.7) 09/20/16 04:42 PT 14.8 Sec. (12.2-14.9) 09/16/16 Unknown INR 1.17 (0.87-1.13) H 09/16/16 Unknown VBG pH 7.324 (7.320-7.420) 09/16/16 Unknown Sodium 138 mmol/L (137-145) 09/20/16 04:42 Potassium 3.5 mmol/L (3.6-5.0) L 09/20/16 04:42 Chloride 98.4 mmol/L (98-107) 09/20/16 04:42 Carbon Dioxide 26 mmol/L (22-30) 09/20/16 04:42 Anion Gap 17 mmol/L 09/20/16 04:42 BUN 8 mg/dL (9-20) L 09/20/16 04:42 Creatinine 0.6 mg/dL (0.8-1.5) L 09/20/16 04:42 Estimated GFR > 60 ml/min 09/20/16 04:42 BUN/Creatinine Ratio 13.33 % 09/20/16 04:42 Glucose 109 mg/dL (75-100) H 09/20/16 04:42 POC Glucose 172 (70-105) H 09/20/16 17:37 Lactic Acid 2.6 mmol/L (0.7-2.0) H* 09/16/16 Unknown Calcium 7.9 mg/dL (8.4-10.2) L 09/20/16 04:42 Magnesium 1.8 mg/dL (1.7-2.3) 09/20/16 04:42 Iron 15 ug/dL (49-181) L 09/20/16 04:42 TIBC 294.00 mcg/dL (250-450) 09/20/16 04:42 % Saturation 5.10 % 09/20/16 04:42 Transferrin 210 mg/dl (180-329) 09/20/16 04:42 Total Bilirubin 0.3 mg/dL (0.1-1.2) 09/18/16 06:27 AST 28 units/L (5-40) 09/18/16 06:27 ALT 40 units/L (7-56) 09/18/16 06:27 Alkaline Phosphatase 153 units/L (35-129) H 09/18/16 06:27 Total Creatine Kinase 24 units/L (55-170) L 09/16/16 Unknown CK-MB (CK-2) < 1.0 ng/mL (0.0-4.0) 09/16/16 Unknown CK-MB (CK-2) Rel Index 4.1 (0-4) H 09/16/16 Unknown Troponin T 0.145 ng/mL (0.00-0.029) H* 09/16/16 Unknown Total Protein 6.7 g/dL (6.3-8.2) 09/18/16 06:27 Albumin 2.7 g/dL (3.9-5) L 09/18/16 06:27 Albumin/Globulin Ratio 0.7 % 09/18/16 06:27 Triglycerides 180 mg/dL (2-149) H 09/16/16 Unknown Cholesterol 116 mg/dL (50-199) 09/16/16 Unknown LDL Cholesterol Direct 53 mg/dL (50-130) 09/16/16 Unknown HDL Cholesterol 27 mg/dL (40-59) L 09/16/16 Unknown Cholesterol/HDL Ratio 4.29 % 09/16/16 Unknown Urine Color Yellow (Yellow) 09/16/16 12:50 Urine Turbidity Clear (Clear) 09/16/16 12:50 Urine pH 6.0 (5.0-7.0) 09/16/16 12:50 Ur Specific [place] 1.010 (1.003-1.030) 09/16/16 12:50 Urine Protein <15 mg/dl mg/dL (Negative) 09/16/16 12:50 Urine Glucose (UA) Neg mg/dL (Negative) 09/16/16 12:50 Urine Ketones Neg mg/dL (Negative) 09/16/16 12:50 Urine Blood Neg (Negative) 09/16/16 12:50 Urine Nitrite Neg (Negative) 09/16/16 12:50 Urine Bilirubin Neg (Negative) 09/16/16 12:50 Urine Urobilinogen < 2.0 mg/dL (<2.0) 09/16/16 12:50 Ur Leukocyte Esterase Sm (Negative) 09/16/16 12:50 Urine WBC (Auto) 30.0 /HPF (0.0-6.0) H 09/16/16 12:50 Urine RBC (Auto) 10.0 /HPF (0.0-6.0) 09/16/16 12:50 Urine Mucus Few /HPF 09/16/16 12:50
[2016-09-20] MEDS: DILAUDID IV PRN (19:11)
[2016-09-21] MEDS: FEOSOL PO SCH ×2 (00:40→09:50)
[2016-09-21] MEDS: DILAUDID IV PRN ×2 (00:41→09:50)
[2016-09-21] MEDS: NOVOLOG SUB-Q SCH ×3 (01:34→14:31)
[2016-09-21] MEDS: DELTASONE PO SCH (09:50)
[2016-09-21] MEDS: LOVENOX SUB-Q SCH (09:50)
--- NOTE | 2016-09-21 10:51 | Discharge Summary ---
Providers - Providers Date of Admission: 09/16/16 19:48 Date of discharge: 09/21/16 Attending physician: CHRIS HARP 09/16/16 21:29 Consult to Dietitian/Nutrition [CONS] Routine Physician Instructions: Reason For Exam: Reason for Consult: Write/Manage Tube Feeding 09/16/16 21:35 Consult to Physician [CONS] Routine Consulting Provider: JOZEF ARREDONDO Reason For Exam: ARF Place consult to:: Dr. Arredondo Notified:: yes Phone number called:: [phone] Was contact made?: Yes If yes, spoke with:: Dr. Arredondo Time called:: 06:47 09/17/16 08:35 Consult to Wound/ET Nurse [CONS] Routine Reason For Exam: wound eval 09/17/16 08:57 Consult to Wound/ET Nurse [CONS] Routine Reason For Exam: Wound Eval present on admission Primary care physician: HAMPER MAKER Hospitalization Reason for admission: AMSD Condition: Stable Pertinent studies: CXR Hospital course: 1. Sepsis with shock vs adrenal insufficiency as he was on corticosteroids chronically Taught to be secondary to UTI +/- decubitus ulcers, but all cultures negative Hypotension resolved after was started on corticosteroids Antibiotics discontinued Corticosteroids changed to by mouth 2. Acute renal failure Likely vasomotor nephropathy due to dehydration Resolved with IV fluids 3. Hyperkalemia In the setting of acute renal failure, HARRISON inhibitor use and potassium supplementation Medically treated Continue to monitor 4. Elevated troponin on admission No symptoms, EKG with no ischemic changes Likely nonspecific, in the setting of acute renal failure 5. Acute toxic metabolic encephalopathy Due to all of the above superimposed on narcotics/benzos use Treating underlying conditions and decreased dose of narcotics and benzos Mental status back to baseline 6. DM Accu-Cheks and SSI 7. HTN All antihypertensives on hold due to hypotension on admission Currently BP within normal limits on no medications 8. Iron deficient anemia Started on supplementation 9. Seizure disorder Depakote resumed 10. Paraplegia 11. Decubitus ulcers Local wound care 12. Malnutrition Dietitian consulted for supplementation 13. DVT prophylaxis Lovenox Disposition: DC/[place] [facility] Time spent for discharge: 35 min Core Measure Documentation - Palliative Care Palliative Care/ Comfort Measures: Not Applicable - Core Measures Any of the following diagnoses?: none Exam - Physical Exam Narrative exam: Patient seen and examined: - Constitutional Vitals: Temp Pulse Resp BP Pulse Ox 98.1 F 78 18 192/65 98 09/21/16 08:00 09/21/16 08:00 09/21/16 08:00 09/21/16 08:00 09/21/16 08:00 General appearance: Present: no acute distress, obese - EENT Eyes: Present: PERRL, EOM intact. Absent: scleral icterus, conjunctival injection - Neck Neck: Present: supple, normal ROM. Absent: masses or JVD - Respiratory Respiratory effort: normal Respiratory: bilateral: CTA, negative: rales, rhonchi, wheezing - Cardiovascular Rhythm: regular Heart Sounds: Present: S1 & S2. Absent: systolic murmur - Extremities Extremities: no ischemia, abnormal (multiple decubitus ulcers) - Abdominal General gastrointestinal: Present: soft, non-tender, non-distended, normal bowel sounds - Integumentary Integumentary: Present: warm, dry. Absent: jaundice, rash - Neurologic Neurologic: other (paraplegia) Plan Activity: advance as tolerated, fall precautions Diet: low cholesterol, low salt, diabetic Prescriptions: Aspirin [Aspirin TAB] 325 mg PO QDAY #30 tablet Docusate Sodium [Colace CAP] 100 mg PO BID PRN #30 capsule PRN Reason: Constipation predniSONE [Deltasone] 10 mg PO DAILY #30 tablet Divalproex Sodium [Depakote] 500 mg PO BID #60 tablet.dr Oxybutynin [Ditropan] 10 mg PO DAILY #60 tablet Ferrous Sulfate [Feosol 325 MG tab] 325 mg PO BID #60 tablet Morphine Sulfate [Morphine Sulfate ER] 30 mg PO Q12H #60 cap.er.pel oxyCODONE /ACETAMINOPHEN [Percocet 5/325 mg] 1 tab PO Q4H PRN #20 tablet PRN Reason: Pain Sennosides [Senna Lax] 2 tab PO BID #60 tablet
[2016-09-21] MEDS ORDERED: TRIPLE ANTIBIOTIC TP ONE (13:53)
[2016-09-21 15:28] VITALS: BP 149/70
== END 2016-09-21 15:32 | DRG 871 ==
LOC: ED 12:05 → CC1 19:48 → 3A 09-17 21:23
PROVIDERS: ADMIT Internal Medicine; ATTEND Internal Medicine
PROC: 3E0234Z Introduction of Serum, Toxoid and Vaccine into Muscle, Percutaneous Approach (ICD-10-PCS; principal; 2016-09-18)
DX: A41.9 Sepsis, unspecified organism (principal); R65.21 Severe sepsis with septic shock; G92 Toxic encephalopathy; N17.0 Acute kidney failure with tubular necrosis; G82.20 Paraplegia, unspecified; N39.0 Urinary tract infection, site not specified; E46 Unspecified protein-calorie malnutrition; E27.40 Unspecified adrenocortical insufficiency; E87.5 Hyperkalemia; G40.909 Epilepsy, unspecified, not intractable, without status epilepticus; E11.9 Type 2 diabetes mellitus without complications; I10 Essential (primary) hypertension; J44.9 Chronic obstructive pulmonary disease, unspecified; L89.90 Pressure ulcer of unspecified site, unspecified stage; M19.019 Primary osteoarthritis, unspecified shoulder; M47.9 Spondylosis, unspecified; F32.9 Major depressive disorder, single episode, unspecified; F41.9 Anxiety disorder, unspecified; R32 Unspecified urinary incontinence; E86.0 Dehydration; T40.605A Adverse effect of unspecified narcotics, initial encounter; T42.4X5A Adverse effect of benzodiazepines, initial encounter; G89.29 Other chronic pain; E87.6 Hypokalemia; E66.9 Obesity, unspecified; D50.9 Iron deficiency anemia, unspecified; Z91.018 Allergy to other foods; Z79.899 Other long term (current) drug therapy; Z79.4 Long term (current) use of insulin; Z87.442 Personal history of urinary calculi; Z79.82 Long term (current) use of aspirin; Z68.32 Body mass index [BMI] 32.0-32.9, adult; Z23 Encounter for immunization
CPT/HCPCS: 36415; 51702; 71010; 80048; 80053; 80061; 81001; 82140; 82550; 82553; 82805; 82962; 83550; 83735; 84132; 84484; 85025; 85610; 87040; 87086; 90686; 90732; 93005; 93010; 94640; 96365; 96366; 96367; 96375; A6250; J1170; J1650; J1815; J2060; J2310; J2543; J2920; J3370; J7030; J7042; J7512

== ENCOUNTER 2016-10-26 10:56 | Outpatient (CLI) | payer MEDICARE ==
--- NOTE | 2016-10-26 13:19 | Fluoroscopy Report ---
Cystogram: History: Retention of urine, neuropathic bladder. Findings: Water-soluble contrast was introduced through the catheter into the bladder. The bladder is adequately distended with contrast. No extrinsic or intrinsic filling defects are noted. No extravasation of contrast. No reflux in the ureters. Impression: Essentially unremarkable cystogram.
== END 2016-10-26 10:57 | disposition home or self-care (01) ==
LOC: FLUORO 10:56
PROVIDERS: ATTEND Urology
DX: E11.9 Type 2 diabetes mellitus without complications (principal); J44.9 Chronic obstructive pulmonary disease, unspecified; I48.91 Unspecified atrial fibrillation; K64.9 Unspecified hemorrhoids; A41.9 Sepsis, unspecified organism; K21.9 Gastro-esophageal reflux disease without esophagitis; T78.40XS Allergy, unspecified, sequela; R33.9 Retention of urine, unspecified; G83.4 Cauda equina syndrome; K59.00 Constipation, unspecified; G40.89 Other seizures; F41.9 Anxiety disorder, unspecified; F32.9 Major depressive disorder, single episode, unspecified; L29.9 Pruritus, unspecified; G47.9 Sleep disorder, unspecified; N32.89 Other specified disorders of bladder
CPT/HCPCS: 51600; 74430; Q9958

== ENCOUNTER 2017-10-09 12:53 | Emergency (ER) | payer MEDICARE ==
[2017-10-09 14:50] VITALS: BP 128/62
--- NOTE | 2017-10-09 15:02 | Emergency Department Report ---
ED General Adult HPI - General Chief complaint: Abdominal Pain Stated complaint: BLOOD IN URINE Time Seen by Provider: 10/09/17 14:38 Source: EMS Mode of arrival: Stretcher Limitations: Physical Limitation - History of Present Illness Initial comments: Mrs. Garza has an indwelling pugh catheter. He has history of paraplegia and a host of medical illnesses from [facility]. Catheter was replaced last night. He has had severe suprapubic pain. Only blood has drained into the collection bag without urine since last night. Severe 10/10 pain without radiation. - Related Data Home Medications Medication Instructions Recorded Confirmed Last Taken Amitriptyline [Elavil] 50 mg PO QHS 03/17/16 05/19/17 3 Days Ago ~05/16/17 Acetaminophen [Acetaminophen 8 650 mg PO Q8H PRN 08/07/16 05/19/17 3 Days Ago Hour] ~05/16/17 Insulin Aspart [NovoLOG Flexpen] 1 units SQ ACHS 08/07/16 05/19/17 2 Days Ago ~05/17/17 Previous Rx's Medication Instructions Recorded Last Taken Type ALBUTEROL Inhaler [ProAir HFA 2 puff INHALATION Q4H PRN #7 inha 11/10/13 3 Days Ago Rx Inhaler] ~05/16/17 Ascorbic Acid [Vitamin C] 500 mg PO QDAY tablet 09/01/16 3 Days Ago Rx ~05/16/17 Aspirin [Aspirin TAB] 325 mg PO QDAY #30 tablet 09/21/16 3 Days Ago Rx ~05/16/17 Divalproex Sodium [Depakote] 500 mg PO BID #60 tablet. 09/21/16 3 Days Ago Rx ~05/16/17 Docusate Sodium [Colace CAP] 100 mg PO BID PRN #30 capsule 09/21/16 3 Days Ago Rx ~05/16/17 Ferrous Sulfate [Feosol 325 MG tab] 325 mg PO BID #60 tablet 09/21/16 3 Days Ago Rx ~05/16/17 Morphine Sulfate [Morphine Sulfate 30 mg PO Q12H #60 cap.er.pel 09/21/16 1 Week Ago Rx ER] ~05/12/17 Oxybutynin [Ditropan] 10 mg PO DAILY #60 tablet 09/21/16 3 Days Ago Rx ~05/16/17 Aspirin [Aspirin TAB] 325 mg PO QDAY tablet 05/21/17 Unknown Rx Ciprofloxacin HCl [Ciprofloxacin 500 mg PO Q12H #10 tab 05/21/17 Unknown Rx TAB] Divalproex [Ivania Vera] 500 mg PO BID tablet 05/21/17 Unknown Rx Ipratropium/Albuterol Sulfate 1 ampul IH TIDRT ampul.neb 05/21/17 Unknown Rx [DUONEB *Not for PRN Use*] Pantoprazole [Protonix TAB] 40 mg PO QDAY tablet 05/21/17 Unknown Rx amLODIPine [Norvasc] 5 mg PO QDAY tablet 05/21/17 Unknown Rx predniSONE [Deltasone] 10 mg PO DAILY tablet 05/21/17 Unknown Rx Allergies Allergy/AdvReac Type Severity Reaction Status Date / Time raw onion Allergy Vomiting Uncoded 11/09/15 04:49 ED Review of Systems ROS: Stated complaint: BLOOD IN URINE Other details as noted in HPI Comment: All other systems reviewed and negative Cardiovascular: denies: chest pain Gastrointestinal: denies: nausea, vomiting ED Past Medical Hx - Past Medical History Hx Hypertension: Yes Hx Congestive Heart Failure: Yes Hx Diabetes: Yes Hx Deep Vein Thrombosis: No Hx Sickle Cell Disease: No Hx Arthritis: Yes (neck and shoulder) Hx Seizures: Yes Hx Kidney Stones: Yes Hx Psychiatric Treatment: Yes (DEPRESSIVE DISORDER) Hx Asthma: Yes Hx COPD: Yes Hx HIV: No Additional medical history: PARAPLEGIA. SEPSIS. LUMBOSACRAL SPONDYLOSIS. Metabolic encephalitis - Surgical History Hx Pacemaker: No Hx Internal Defibrillator: No Additional Surgical History: shoulder - Social History Smoking Status: Never Smoker - Medications Home Medications: Home Medications Medication Instructions Recorded Confirmed Last Taken Type ALBUTEROL Inhaler [ProAir HFA 2 puff INHALATION Q4H PRN #7 inha 11/10/13 3 Days Ago Rx Inhaler] ~05/16/17 Amitriptyline [Elavil] 50 mg PO QHS 03/17/16 05/19/17 3 Days Ago History ~05/16/17 Acetaminophen [Acetaminophen 8 650 mg PO Q8H PRN 08/07/16 05/19/17 3 Days Ago History Hour] ~05/16/17 Insulin Aspart [NovoLOG Flexpen] 1 units SQ ACHS 08/07/16 05/19/17 2 Days Ago History ~05/17/17 Ascorbic Acid [Vitamin C] 500 mg PO QDAY tablet 09/01/16 05/19/17 3 Days Ago Rx ~05/16/17 Aspirin [Aspirin TAB] 325 mg PO QDAY #30 tablet 09/21/16 05/19/17 3 Days Ago Rx ~05/16/17 Divalproex Sodium [Depakote] 500 mg PO BID #60 tablet.dr 09/21/16 05/19/17 3 Days Ago Rx ~05/16/17 Docusate Sodium [Colace CAP] 100 mg PO BID PRN #30 capsule 09/21/16 05/19/17 3 Days Ago Rx ~05/16/17 Ferrous Sulfate [Feosol 325 MG tab] 325 mg PO BID #60 tablet 09/21/16 05/19/17 3 Days Ago Rx ~05/16/17 Morphine Sulfate [Morphine Sulfate 30 mg PO Q12H #60 cap.er.pel 09/21/16 1 Week Ago Rx ER] ~05/12/17 Oxybutynin [Ditropan] 10 mg PO DAILY #60 tablet 09/21/16 05/19/17 3 Days Ago Rx ~05/16/17 Aspirin [Aspirin TAB] 325 mg PO QDAY tablet 05/21/17 Unknown Rx Ciprofloxacin HCl [Ciprofloxacin 500 mg PO Q12H #10 tab 05/21/17 Unknown Rx TAB] Divalproex [[place]ia Vera] 500 mg PO BID tablet 05/21/17 Unknown Rx Ipratropium/Albuterol Sulfate 1 ampul IH TIDRT ampul.neb 05/21/17 Unknown Rx [DUONEB *Not for PRN Use*] Pantoprazole [Protonix TAB] 40 mg PO QDAY tablet 05/21/17 Unknown Rx amLODIPine [Norvasc] 5 mg PO QDAY tablet 05/21/17 Unknown Rx predniSONE [Deltasone] 10 mg PO DAILY tablet 05/21/17 Unknown Rx ED Physical Exam - General Limitations: Physical Limitation General appearance: alert, in distress (appears in severe pain) - Head Head exam: Present: atraumatic, normocephalic - Eye Eye exam: Present: normal appearance, PERRL - ENT ENT exam: Present: normal exam, mucous membranes moist - Neck Neck exam: Present: normal inspection. Absent: meningismus - Respiratory Respiratory exam: Present: normal lung sounds bilaterally. Absent: respiratory distress, wheezes, rales, rhonchi - Cardiovascular Cardiovascular Exam: Present: normal rhythm, tachycardia - GI/Abdominal GI/Abdominal exam: Present: soft. Absent: distended, tenderness, guarding, rebound - exam: Present: normal inspection, circumcision, other (pugh catheter in place with blood at urethral meatus). Absent: testicular tenderness, scrotal swelling - Extremities Exam Extremities exam: Present: pedal edema - Neurological Exam Neurological exam: Present: alert, oriented X3 - Psychiatric Psychiatric exam: Present: flat affect (appears frustrated and uncomfortable) - Skin Skin exam: Present: warm ED Course Vital Signs 10/09/17 14:28 Temperature 98.1 F Pulse Rate 113 H Respiratory 22 Rate Blood Pressure 128/62 O2 Sat by Pulse 100 Oximetry ED Medical Decision Making - Medical Decision Making Mr. Buckner presents with pugh catheter obstruction due to blood likely caused by traumatic insertion. Pugh catheter replaced by our nursing staff. Blood urine outflow evident. Patient feels much better after pugh replacement. Patient continues to have bloody urine outflow. I still suspect trauma. Urine culture has been sent. Patient will be discharged back [facility]. Critical care attestation.: If time is entered above; I have spent that time in minutes in the direct care of this critically ill patient, excluding procedure time. ED Disposition Clinical Impression: Pugh catheter problem, Hematuria Disposition: [id number]/TX-70 ANOTHER TYPE [facility] Is pt being admited?: No Does the pt Need Aspirin: No Condition: Stable Instructions: Acute Hematuria (ED), Pugh Catheter Insertion (ED) Referrals: XAVIER COVINGTON MD [Staff Physician] - 3-5 Days Time of Disposition: 15:58
[2017-10-09] MEDS ORDERED: PERCOCET 5/325 PO ONE (15:03)
[2017-10-09 16:17] LABS: Bilirubin,Urine NEG (Negative); Blood,Urine MOD (Negative); Color,Urine Red (Yellow); Nitrite,Urine NEG (Negative); Urobilinogen,Urine < 2.0 mg/dL (<2.0)
[2017-10-09 16:24] LABS: RBC,Urine > 182.0 /HPF (0.0-6.0)
== END 2017-10-09 18:00 | disposition other institution (70) ==
LOC: ED 12:53
DX: T83.091A Other mechanical complication of indwelling urethral catheter, initial encounter (principal); R31.9 Hematuria, unspecified; I10 Essential (primary) hypertension; I50.9 Heart failure, unspecified; E11.9 Type 2 diabetes mellitus without complications; R56.9 Unspecified convulsions; F32.9 Major depressive disorder, single episode, unspecified; J45.909 Unspecified asthma, uncomplicated; J44.9 Chronic obstructive pulmonary disease, unspecified; Z79.4 Long term (current) use of insulin; Z79.82 Long term (current) use of aspirin; Z91.018 Allergy to other foods
CPT/HCPCS: 51702; 81001; 87086; 87186; 99283